=== PATIENT | female | born 1960 | race African-American/Black ===

== ENCOUNTER 2018-05-24 17:01 | Emergency (ER) | payer BC ==
[2018-05-24] MEDS ORDERED: AZITHROMYCIN 250 MG TAB ONE (18:58)
[2018-05-24] MEDS ORDERED: OSELTAMIVIR 75 MG CAP ONE (18:58)
--- NOTE | 2018-05-24 19:11 | ER ---
Nurse's Notes [facility] Name: Kary Sosa Age: 57 yrs Sex: Female : 1960 Arrival Date: 05/24/2018 Time: 17:02 Bed 19 Private MD: Diagnosis: Cough;Influenza due to identified novel influenza A virus;Sarcoidosis of lung;Pain in right lower leg;Synovial cyst of popliteal space [Warner], right knee Presentation: 05/24 17:19 Presenting complaint: Nonproductive cough, body aches, bilateral ear pain, dizziness, hb malaise, sinus congestion, SOB, sore throat, diarrhea, and subjective fever x 5 days. Transition of care: patient was not received from another setting of care. Onset of symptoms was May 24, 2018. Risk Assessment: Do you want to hurt yourself or someone else? Patient reports no desire to harm self or others. Care prior to arrival: None. 17:19 Method Of Arrival: Ambulatory hb 17:19 Acuity: PARISH 3 hb 18:22 Initial Sepsis Screen: Does the patient meet any 2 criteria? No. Patient's initial sv sepsis screen is negative. Does the patient have a suspected source of infection? No. Patient's initial sepsis screen is negative. Historical: - Allergies: 17:23 Sulfa (Sulfonamide Antibiotics); hb - Home Meds: 17:23 amlodipine oral [Active]; olmesartan oral oral [Active]; hb - PMHx: 17:23 sarcoidoisis; Hypertension; hb - PSHx: 17:23 Knee - RIGHT; Hysterectomy; Tubal ligation; hb - Immunization history:: Adult Immunizations up to date. - Social history:: Smoking status: Patient/guardian denies using tobacco. - Ebola Screening: : No symptoms or risks identified at this time. - Family history:: not pertinent. Screenin:22 Abuse screen: Denies threats or abuse. Denies injuries from another. Nutritional sv screening: No deficits noted. Tuberculosis screening: No symptoms or risk factors identified. Fall Risk None identified. Assessment: 18:22 General: Appears in no apparent distress. uncomfortable, well groomed, well developed, sv Behavior is calm, cooperative, appropriate for age. General: Reports feeling ill for 1-2 days, fatigue for 1-2 days. Pain: Complains of pain in right ear and left ear and medial aspect of right calf Pain currently is 6 out of 10 on a pain scale. Quality of pain is described as aching, Is intermittent. Neuro: Level of Consciousness is awake, alert, obeys commands, Oriented to person, place, time, situation, Moves all extremities. Full function Gait is steady, Speech is normal. Respiratory: Respiratory effort is even, unlabored, Respiratory pattern is regular, symmetrical. Derm: Skin is normal. Musculoskeletal: Range of motion: intact in all extremities. 19:05 Reassessment: Patient appears in no apparent distress at this time. No changes from sv previously documented assessment. Patient and/or family updated on plan of care and expected duration. Pain level reassessed. Patient is alert, oriented x 3, equal unlabored respirations, skin warm/dry/pink. Vital Signs: 17:21 BP 119 / 91; Pulse 90; Resp 20; Temp 99(TE); Pulse Ox 100% on R/A; Pain 6/10; hb 18:33 BP 92 / 70; Pulse 91; Resp 18; Pulse Ox 96% ; sv ED Course: 17:02 Patient arrived in ED. as 17:21 Triage completed. hb 17:23 Arm band placed on. hb 18:20 Woodrow Lawson MD is Attending Physician. renetta 18:21 Marisol Harris, RN is Primary Nurse. sv 18:22 Patient has correct armband on for positive identification. Bed in low position. Call sv light in reach. Pulse ox on. NIBP on. Door closed. Warm blanket given. Head of bed elevated. 18:44 Patient taken to ultrasound. via wheelchair. hr 19:00 Awaiting radiology results. sv 19:03 US Extremity Venous W Compression Mc In Process Unspecified. EDMS 19:09 Primary Nurse role handed off by Marisol Harris, FAINA ed1 19:09 Kalpana Patel, RN is Primary Nurse. ed1 19:13 Report given to Kalpana EISENBERG. sv 19:21 No provider procedures requiring assistance completed. Patient did not have IV access ed1 during this emergency room visit. Administered Medications: 19:12 Drug: Tamiflu 75 mg Route: PO; sv 19:21 Follow up: Response: Medication administered at discharge. ed1 19:13 Drug: Zithromax 500 mg Route: PO; sv 19:22 Follow up: Response: Medication administered at discharge. ed1 Outcome: 19:10 Discharge ordered by MD. jackson 19:21 Discharged to home ambulatory. ed1 19:21 Condition: good 19:21 Discharge instructions given to patient, Instructed on discharge instructions, follow up and referral plans. medication usage, Demonstrated understanding of instructions, follow-up care, medications, Prescriptions given X 4. 19:22 Patient left the ED. ed1 Signatures: Dispatcher [employer] EDNV Marisol Harris RN RN Woodrow Cole MD MD cha Rod, Haley hr Martinez, Amelia as Riggs, Erika, RN RN ed1 Shaina Doshi RN RN hb Corrections: (The following items were deleted from the chart) 17:22 17:19 Presenting complaint: Nonproductive cough, dizziness, malaise, sinus congestion, hb SOB, sore throat, diarrhea, and subjective fever x 5 days hb
--- NOTE | 2018-05-24 19:11 | EDPHYS ---
Physician Documentation [facility] Name: Kary Sosa Age: 57 yrs Sex: Female : 1960 Arrival Date: 05/24/2018 Time: 17:02 Bed 19 Private MD: ED Physician Woodrow Lawson HPI: 05/24 18:33 This 57 yrs old Black Female presents to ER via Ambulatory with complaints of Flu renetta Symptoms. 18:33 The patient presents with pain, that is acute. The complaints affect the medial aspect renetta of right calf. Context: resulted from an unknown cause. Onset: The symptoms/episode began/occurred 3 day(s) ago. Modifying factors: The symptoms are alleviated by nothing. The patient or guardian reports cough, flu symptoms, arthralgias, low-grade fever, myalgias. Modifying factors: The symptoms are alleviated by nothing. The patient or guardian reports airway noise. Historical: - Allergies: 17:23 Sulfa (Sulfonamide Antibiotics); hb - Home Meds: 17:23 amlodipine oral [Active]; olmesartan oral oral [Active]; hb - PMHx: 17:23 sarcoidoisis; Hypertension; hb - PSHx: 17:23 Knee - RIGHT; Hysterectomy; Tubal ligation; hb - Immunization history:: Adult Immunizations up to date. - Social history:: Smoking status: Patient/guardian denies using tobacco. - Ebola Screening: : No symptoms or risks identified at this time. - Family history:: not pertinent. ROS: 18:33 Constitutional: Negative for fever, chills, and weight loss, Eyes: Negative for injury, renetta pain, redness, and discharge, ENT: Negative for injury, pain, and discharge, Neck: Negative for injury, pain, and swelling, Cardiovascular: Negative for chest pain, palpitations, and edema, Abdomen/GI: Negative for abdominal pain, nausea, vomiting, diarrhea, and constipation, Back: Negative for injury and pain, : Negative for injury, bleeding, discharge, and swelling, MS/Extremity: Negative for injury and deformity, Skin: Negative for injury, rash, and discoloration, Neuro: Negative for headache, weakness, numbness, tingling, and seizure, Psych: Negative for depression, anxiety, suicide ideation, homicidal ideation, and hallucinations, Allergy/Immunology: Negative for hives, rash, and allergies, Endocrine: Negative for neck swelling, polydipsia, polyuria, polyphagia, and marked weight changes, Hematologic/Lymphatic: Negative for swollen nodes, abnormal bleeding, and unusual bruising. 18:33 Respiratory: Positive for cough, shortness of breath, on exertion. wheezing, expiratory. Exam: 18:33 Constitutional: This is a well developed, well nourished patient who is awake, alert, renetta and in no acute distress. Head/Face: Normocephalic, atraumatic. Eyes: Pupils equal round and reactive to light, extra-ocular motions intact. Lids and lashes normal. Conjunctiva and sclera are non-icteric and not injected. Cornea within normal limits. Periorbital areas with no swelling, redness, or edema. ENT: Nares patent. No nasal discharge, no septal abnormalities noted. Tympanic membranes are normal and external auditory canals are clear. Oropharynx with no redness, swelling, or masses, exudates, or evidence of obstruction, uvula midline. Mucous membranes moist. Neck: Trachea midline, no thyromegaly or masses palpated, and no cervical lymphadenopathy. Supple, full range of motion without nuchal rigidity, or vertebral point tenderness. No Meningismus. Chest/axilla: Normal chest wall appearance and motion. Nontender with no deformity. No lesions are appreciated. Cardiovascular: Regular rate and rhythm with a normal S1 and S2. No gallops, murmurs, or rubs. Normal PMI, no JVD. No pulse deficits. Abdomen/GI: Soft, non-tender, with normal bowel sounds. No distension or tympany. No guarding or rebound. No evidence of tenderness throughout. Female : Normal external genitalia. Skin: Warm, dry with normal turgor. Normal color with no rashes, no lesions, and no evidence of cellulitis. Neuro: Awake and alert, GCS 15, oriented to person, place, time, and situation. Cranial nerves II-XII grossly intact. Motor strength 5/5 in all extremities. Sensory grossly intact. Cerebellar exam normal. Normal gait. Psych: Awake, alert, with orientation to person, place and time. Behavior, mood, and affect are within normal limits. 18:33 Respiratory: the patient does not display signs of respiratory distress, Respirations: normal, Breath sounds: rhonchi, wheezing: expiratory that is mild. Vital Signs: 17:21 BP 119 / 91; Pulse 90; Resp 20; Temp 99(TE); Pulse Ox 100% on R/A; Pain 6/10; hb 18:33 BP 92 / 70; Pulse 91; Resp 18; Pulse Ox 96% ; sv MDM: 18:20 Patient medically screened. [facility] 18:37 Data reviewed: vital signs, nurses notes, lab test result(s), Flu: positive radiologic [facility] studies, ultrasound. 05/24 17:21 Order name: Flu; Complete Time: 18:30 hb 05/24 17:21 Order name: Strep; Complete Time: 18:30 hb 05/24 17:56 Order name: Throat Culture EDMS 05/24 18:31 Order name: US Extremity Venous W Compression Mc renetta Administered Medications: 19:12 Drug: Tamiflu 75 mg Route: PO; sv 19:21 Follow up: Response: Medication administered at discharge. ed1 19:13 Drug: Zithromax 500 mg Route: PO; sv 19:22 Follow up: Response: Medication administered at discharge. ed1 Disposition: 05/24/18 19:10 Discharged to Home. Impression: Cough, Influenza due to identified novel influenza A virus, Sarcoidosis of lung, Pain in right lower leg, Synovial cyst of popliteal space [Warner], right knee. - Condition is Stable. - Discharge Instructions: Influenza, Adult, Musculoskeletal Pain, Cool Mist Vaporizer, Influenza, Adult, [id number], Cough, Adult, [id number], Cough, Adult. - Prescriptions for Albuterol Sulfate 90 mcg/actuation - inhale 1-2 puff by INHALATION route every 4-6 hours; 1 Inhaler. Tamiflu 75 mg Oral Capsule - take 1 tablet by ORAL route every 12 hours for 5 days; 10 tablet. Guaifenesin AC 10- 100 mg/5 mL Oral Liquid - take 10 milliliters by ORAL route every 6 hours As needed; 160 milliliter. Zithromax 500 mg Oral Tablet - take 1 tablet by ORAL route once daily for 4 days; 4 tablet. - Medication Reconciliation Form, Thank You Letter, Antibiotic Education, Prescription Opioid Use, Work release form form. - Follow up: Private Physician; When: 2 - 3 days; Reason: Recheck today's complaints, Continuance of care, Re-evaluation by your physician. - Problem is new. - Symptoms have improved. Signatures: Dispatcher [employer] EDMarisol Wright, RN RN Woodrow Lawson MD MD cha Riggs, Erika RN RN ed1 Shaina Doshi RN RN Corrections: (The following items were deleted from the chart) 19:22 19:10 05/24/2018 19:10 Discharged to Home. Impression: Cough; Influenza due to ed1 identified novel influenza A virus; Sarcoidosis of lung; Pain in right lower leg; Synovial cyst of popliteal space [Warner], right knee. Condition is Stable. Discharge Instructions: Influenza, Adult, Musculoskeletal Pain, Cool Mist Vaporizer, Influenza, Adult, [id number], Cough, Adult, [id number], Cough, Adult. Prescriptions for Albuterol Sulfate 90 mcg/actuation - inhale 1-2 puff by INHALATION route every 4-6 hours; 1 Inhaler, Tamiflu 75 mg Oral Capsule - take 1 tablet by ORAL route every 12 hours for 5 days; 10 tablet, Guaifenesin AC 10-100 mg/5 mL Oral Liquid - take 10 milliliters by ORAL route every 6 hours As needed; 160 milliliter, Zithromax 500 mg Oral Tablet - take 1 tablet by ORAL route once daily for 4 days; 4 tablet. and Forms are Medication Reconciliation Form, Thank You Letter, Antibiotic Education, Prescription Opioid Use. Follow up: Private Physician; When: 2 - 3 days; Reason: Recheck today's complaints, Continuance of care, Re-evaluation by your physician. Problem is new. Symptoms have improved. renetta
--- NOTE | 2018-05-24 19:19 | RAD REPORT ---
EXAM DESCRIPTION: US - Extrem Venous W Compress Mc - 05/24/2018 7:02 pm CLINICAL HISTORY: PAIN Bilateral leg edema and swelling. COMPARISON: No comparisons TECHNIQUE: Real-time sonographic interrogation of the left and right lower extremity deep venous sys tems was performed. FINDINGS: Normal compressibility, flow augmentation, phasic flow and spontaneous flow is identified in both the left and right lower extremity deep venous systems. Small right Warner's cyst. IMPRESSION: No sonographic evidence of left or right lower extremity deep venous thrombosis.
== END 2018-05-24 19:22 | disposition home or self-care (01) ==
LOC: ER 17:01
DX: J10.1 Influenza due to other identified influenza virus with other respiratory manifestations (principal); D86.0 Sarcoidosis of lung; M79.661 Pain in right lower leg; M71.21 Synovial cyst of popliteal space [Baker], right knee; I10 Essential (primary) hypertension; Z88.2 Allergy status to sulfonamides
CPT/HCPCS: 87070; 87081; 87804; 93970; 99284

== ENCOUNTER 2021-04-28 19:18 | Inpatient (IN) | payer BC ==
--- OUTSIDE RECORDS SUMMARY | 2021-04-28 19:22 | XMS REPORT | Continuity of Care Document ---
:1960 Author Organization [facility] t Address [address] [place]. [address] [place] [id number] Care Team Providers Name Role Phone [phone] Primary Care Physician Unavailable SYSTEM, PROVIDER NOT IN Attending Clinician Unavailable JAMES Attending Clinician Unavailable James LAM Attending Clinician Marlon CORTES Attending Clinician Unavailable Marlon Cortes MD Attending Clinician Josue COLLAZO Attending Clinician JOSUE Attending Clinician Unavailable Barbara LAM Attending Clinician Harinder EISENBERG, M Attending Clinician Unavailable Yelena Geiger MD Attending Clinician Marciano Garcia MD Attending Clinician Payers Payer Name Policy Type Policy Number Effective Date Expiration Date S hua [place] POS [id number] 2017 00:00:00 Problems Condition Condition Condition Status Onset Resolution Last Treating Co mments Source Name Details Category Date Date Treatment Clinician Date Lesion of Lesion of Disease Active scalp scalp 3-17 Anderso 00:00: n 00 Allergies, Adverse Reactions, Alerts This patient has no known allergies or adverse reactions. Family History Family Member Diagnosis Comments Start Date Stop Date Source Natural brother Skin cancer Thierno son Social History Social Habit Start Date Stop Date Quantity Comments Source History [facility] MD [facility] Alcohol Frequency History ANTONYHI MD [facility] Alcohol Std Drinks History ANTONYHI MD [facility] Alcohol Binge Alcohol intake 2021-01-25 2021-01-25 Ex-drinker MD Don townsend 00:00:00 00:00:00 (finding) Cigarettes smoked 2020-06-05 2020-06-05 MD Frederick palacios current (pack per 00:00:00 00:00:00 day) - Reported Cigarette 2020-06-05 2020-06-05 MD Lawson pack-years 00:00:00 00:00:00 Tobacco use and 2020-06-05 2020-06-05 Smokeless tobacco MD Lawson exposure 00:00:00 00:00:00 non-user History SDOH 2020-06-05 2020-06-05 I quit 08/19/1990 MD Karyn almaraz Alcohol Comment 00:00:00 00:00:00 Tobacco Comment 2020-06-05 2020-06-05 I quit 23 years MD Lawson 00:00:00 00:00:00 ago History of tobacco 1974 1997-12-18 Current smoker MD Lawson use 00:00:00 00:00:00 Sex [birth year] At [birth year] F MD Sellers on 00:00:00 00:00:00 Smoking Status Start Date Stop Date Source Ex-smoker 2020-06-05 00:00:00 2020-06-05 00:00:00 MD Pa son Medications Ordered Filled Start Stop Current Ordering Indication Dosage Frequency Signature Comments Components Source Medication Medication Date Date Medication? Clinician (SIG) Name Name dexlansopra 2020-03 Yes 60mg Take 60 mg MD membreno 03-27 by mouth Anderso (DEXILANT) 10:48: daily. 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 Xarelto 20 Yes 1{tbl} Take 1 MD mg tablet 1-04 tablet by Thierno so 00:00: mouth n 00 daily. sotalol Yes 40mg Take 40 mg MD (BETAPACE) 8-12 by mouth Thierno so 80 mg 00:00: twice n tablet 00 daily. budesonide- Yes 2{puff} Inhale 2 MD formoterol 9-12 puffs by Thierno so (Symbicort) 00:00: mouth n 80-4.5 00 daily as mcg/actuati needed. on inhaler Immunizations Ordered Immunization Filled Immunization Date Status Commen ts Source Name Name Moderna SARS-CoV-2 2020-07-03 Completed MD And erson Vaccination 00:00:00 Moderna SARS-CoV-2 2020-05-31 Completed MD And erson Vaccination 00:00:00 Vital Signs Vital Name Observation Time Observation Value Comments Source HEIGHT 2020-06-05 10:28:00 162.3 cm WEIGHT 2020-06-05 10:28:00 103.8 kg HEIGHT 2020-06-05 10:28:00 162.3 cm WEIGHT 2020-06-05 10:28:00 103.8 kg Systolic blood pressure 2021-01-25 16:39:31 115 mm[Hg] MD Lawson Diastolic blood pressure 2021-01-25 16:39:31 80 mm[Hg] MD Lawson Heart rate 2021-01-25 16:39:31 76 /min MD Thierno joseph Body temperature 2021-01-25 16:39:31 36.78 Vita MD Jaki lord Oxygen saturation in 2021-01-25 16:39:31 98 /min MD Lawson Arterial blood by Pulse oximetry Body height 2020-06-05 15:28:00 162.3 cm MD Pa son Body weight 2020-06-05 15:28:00 103.8 kg MD Pa son BMI 2020-06-05 15:28:00 39.43 kg/m2 MD Pa son Respiratory rate 2020-06-05 15:16:21 20 /min MD Jaki lord Procedures Procedure Date / Time Performed Performing Clinician Sour e COVID-19 (SARS-COV-2) 2020-06-03 16:16:00 Fabiola Cortes MD And dena PCR-ASYMPTOMATIC PATHOLOGY OUTSIDE 2020-05-09 00:00:00 Musa Garcia MD INTERPRETATION Plan of Care Planned Activity Planned Date Details Comments Source Future Scheduled Test 2020-12-03 00:00:00 COVID-19 Vaccination (3 MD Lawson - Booster for Moderna series) [code = COVID-19 Vaccination (3 - Booster for Moderna series)] Encounters Start End Encounter Admission Attending Care Care Encounter Source Date/Time Date/Time Type Type Clinicians Facility Department ID 2020-05-22 Outpatient SYSTEM, [facility]BY [id number] 10:55:03 PROVIDER Marlo townsend 2021-01-25 2021-01-25 Outpatient JIN RUBI MDA [facility] [id number] 10:32:29 11:27:03 JANEL Marlo o n 2020-10-01 2020-10-01 Outpatient FABIOLA CARBAJAL MDA MDA [id number] 11:07:28 11:49:45 Marlo o n 2020-07-02 2020-07-02 Outpatient JIN WINTERS MDA MDA [id number] 13:43:20 15:03:17 NEYDA Marlo o n 2020-06-05 2020-06-05 Outpatient FABIOLA CARBAJAL MDA MDA [id number] 10:06:15 12:02:23 Marlo o n 2020-06-05 2020-06-05 Outpatient JIN SOUZA MDA [id number] 10:00:16 10:00:22 Marlo o n 2020-06-03 2020-06-03 Outpatient FABIOLA CARBAJAL MDA MDA [id number] 11:08:51 11:21:38 Marlo o n Results Test Description Test Time Test Comments Results Result Comments Source COVID-19 (SARS-CoV-2) PCR-Asymptomatic 2020-06-03 22:29:0 1 Test Item Value Reference Range Interpretation Comme nts COVID19 (SARS CoV-2) Not Detected Not Detected This te st is a qualitative Result (test code = reverse- transcriptase polymerase 08952-6) chain reaction (RT-PCR) developed for the [employer] system and intended fo r the detection of SARS CoV-2 RNA in human nasopharyngeal specimens from patients who me et COVID-19 clinical and/or epidemiological criteria. This assay has been approved by the FDA for use only under Emergency Use Authorization (EUA) in [facility] that have been CLIA-certi fied to perform moderate-comple xity and high-complexity tests. The performance renetta racteristics of this assay were verified by the Microbiology La boratory at [facility], CLIA Accreditation # : [id number] and CAP Accreditati on #: [id number]. Results must be interpreted within the context of all relevant clinical and la boratory findings and should not form the sole basis for a diagnosis or treatment decision. "Pres umptive Positive" results are due to partial amplification o f SARS-CoV-2 targets and ind icates low amounts of virus presen t in the specimen at or near the limit of detection. Regardless, ind ividuals with "Presumptive Po sitive" results should be manag ed per institutional g uidelines as individuals pos itive for SARS-CoV-2 viru s, including use of appropriate inf ection control protocols. Inte rnal controls are included to ass ess for possible amplification i nhibitors. If inhibition is d etected, testing is repeated and if inhibition is confirmed the s pecimen is resulted as "Invalid". W hen an "Invalid" result occur, i t is recommended to wait 3 days bef ore submitting a new specimen fo r testing if clinically frank cated. COVID19 SARS Source TAX EXAMINER Swab (test code = 09395) COVID19 SARS Indication New Patient (test code = 64205) MD [facility] Outside [id number] 21:46:00 Test Item Value Reference Range Interpretation Comments Materials Received (test w7cswXVhYVCjrSMgLvAz code = 9973) [id number] ZzEwMzNcZnRuYmpcdWMx MDFjAtMwy1ekq474mPLl x3tpFBQvKfN4dFBgTBTl hMDjH056QDMxTHezh3ek k4VgCKTmtXCpc3O2KGUO vmfnaEu9tJxjW82vg3A2 ZoecR5ybVGEdSLSwX3Ym LL4sDTPrQzu1YXS0LGP0 CRLwQJWcD6AaXZ2sCCTh pQJtAXa2f6vlcZwuTSOv OPV2d0bxUXtdznSwIW7s fm9qbAj9s3xapeGdTJEb XHZliEKSYRAmE0QgrYyn Qz2zqAa9hUshZwsiETF1 Rwd6NS0rbz14ftq9bZqb IJCfolroBiB4USsmTZAy ftoeKYe4FHgmTNKqhYem MFxtYXJncjcyMFxtYXJn sGB7PJNjuDWwS7RwWSCx ZPlzZFPelsq9PlFvAg7k gYWwwUraKWhzk2nox4tp vTDrXzf1LNBcAkVdJyke QOiyi8Axe4gwKWYejt1i VCJ9zMJrjHtdw1J5oOXs FKGkmZPxdmTqPGHkmc93 lNJbyZJpcPBxsv7jlcOi nMNrnSDsJMT7zDWeamAt FFYyqJLaISBxZO4qkMNj ECGhoO9bgucrBZUvEsOc dtrmDLPjgKliqrBbVl4e pLpjSAF0BTooR4rjnX9m DpK7JMnlH2bdcK7cNNa0 FVpclNZ9GYNneD8mMG7t fcfhm7gtXsGxLS3pbyli m2voQrNgTL4utfu4r7no ZLM4PBrfEDCgTqW5qiA7 NDBcaGVhZGVyeTcyMFxm v400OLO7MjLjRAVwj7Ar M1VliToyQ10hfDkbE03l UYFyuQvfxR8gjNjydV3z MxRvXrNsPVd6tb76RGo6 mmrwmUisCUu3rcPqAWJj QKG5EFOyxWCkLAVzU8v6 bvWpFNFvVVE6KGTczDEy GWJrF0y6lwJpIYF8HCy0 cnBhZGRmdDNcdHJwYWRk YjBcdHJwYWRkZmIzXHRy vDZszBKlzOBqiA1lsMbm WSAryNZijV8lURF6IXSk cmgzMjBcdHJoZHJcbHRy vs57YMZztaIzyRLaeShv eZFsXCA3SVGaFMAhPIIt UAB7SMEwMjYpydCgSKjn bGJyZHJiXGJyZHJzXGJy KQD0QWAzZaEojtGwOBll bGJyZHJsXGJyZHJzXGJy QCI3IERpQkIvkzPuZItu bGJyZHJyXGJyZHJzXGJy EIC4FADwLjIrurBgBChi bHBhZHQxMFxjbHBhZGZ0 V1aixRUeVPTlWDiwsIBs WQHgB0qgdYYmRXulBFEk cGFkZmwzXGNscGFkYjBc V1rxHAJvRbVbE0HchKd6 MDAwXGNsdmVydGFsdFxj fDZqPYJ5BFVnSSEnXOTh LTB6QUDqTzLktdVvEVxy bGJyZHJiXGJyZHJzXGJy TEG4XZCbBpJmhmThAAbs bGJyZHJsXGJyZHJzXGJy FKY7GRLxByRiytLhKGjl bGJyZHJyXGJyZHJzXGJy EDX7VVQbPvJtxdKaFGfi bHBhZHQxMFxjbHBhZGZ0 E7wuyKPrYSViYOmxyNAe ZUYrB8fksKRmVAttSACq cGFkZmwzXGNscGFkYjBc R5ycFZTiJvYlX7DdcCw6 NjAwXGNsdmVydGFsdFxj xUXeOQH9RHFyQGXiDUQo IJT1DCXfVaKsvkTmJDjw bGJyZHJiXGJyZHJzXGJy UXE3VEOpZeBavmPgWZeh bGJyZHJsXGJyZHJzXGJy BPF1FGSoGoBmgnDuERnr bGJyZHJyXGJyZHJzXGJy KVE1SBBrIjEwnvRsJCnu bHBhZHQxMFxjbHBhZGZ0 V4wzaWPuNTSyGDqaaIVk LWQsO9xbfGXlXLnoCZMd cGFkZmwzXGNscGFkYjBc C1giRBLnPrMdY3PxjHu9 QdCiWRBnaeOwkH77Ewkx r9DxLFUvNJW6YDsdYSzf bFxwbGFpblxmMVxmczIw QUzbgxehLJMeAUvdQ0lm PqZaEPQzbXbwANovw1Yn XGYxXGNmMlxmczIwXGIg SXJdAUEwfG1hBpfjK2Jw qT6dWFxuYurmP5paOMJe u6QmzB7lAKjtwTQpmsbx MVxmczIwXGxhbmcxMDMz DQbnW7kkPzTbDWCuwXpp NKyun5QpCWPoKALiBufo qwWnKYk0kfFwZPSitTve yLNnCAxxseXxgXoak4Wt klUrxAfgMWAgWDn8arEj vrtgkKn8hZIjcNyrKQKg eQwzfZ9kIoQcLrJpFOps bGFpblxmMVxmczIwXGxh axqjQPKeQWgwH0cnMzVz QLTkxAzsLVjjk5YjNWUn MIFlBpzefzFhRGEqO93v bGVjdGVkXHBsYWluXGYx XGZzMjBcbGFuZzEwMzNc aGljaFxmMVxkYmNoXGYx XYofO6kbDqJjE5VnKBWk MfAcwCQiW0myJ2OfpIvf YXJkXGludGJsXHNzcGFy UBN0tAAstpAhhOCygOYl MWTtRHpxCZA6zKNtrnge xGTpxbxoKCebxbW8FBJg YWluXGYxXGZzMjBcbGFu ZzEwMzNcaGljaFxmMVxk DwDoERLgDJhiY9dmAaVz V8NzMCDaGaGzIxYHQTWv aXZlZFxwbGFpblxmMVxm czIwXGxhbmcxMDMzXGhp A0tcIbLvBDQalKlfFGdh b8YsTWWyOWCtAflclcDm JFi5uaSjDRWycEtpvJ99 Mfseos45YGOsg3yuGQOa P7IyeGSgMUXzyIPhJOdj MDhcdHJwYWRkZmwzXHRy cGFkZHIxMDhcdHJwYWRk ZnIzXHRycGFkZHQwXHRy yOHpLVD3E4y6xcFmQWFm TDe3ntRrYCAlVyExtDFd YAY7PUh9EkyijiW5wXEb I2x1HgwzdxFnULrevGQj oy96RMGbhaJdmLFheIjs eXKbNMM4RXBeRMRbECSd OYE7QZXhRrMqixMjHHag bGJyZHJiXGJyZHJzXGJy DXV9JYSkDcZqukGxJZln bGJyZHJsXGJyZHJzXGJy YGY1GYNcHnQkwwYnSYfg bGJyZHJyXGJyZHJzXGJy ATO6JJGoMxTejiWpZEgz bHBhZHQxMFxjbHBhZGZ0 P2bfyWUsPIGeFMcdbECg EJLvK5vrvZTxVBdrOAMs cGFkZmwzXGNscGFkYjBc N8tsHAWnMkSrW4KgnOq0 MDAwXGNsdmVydGFsdFxj aRUxHDG1UXShXIWrYGFs GGA2NIWfAzOkcsKuGKzi bGJyZHJiXGJyZHJzXGJy KYG7ZMZzIxDnsrFrRMzb bGJyZHJsXGJyZHJzXGJy TUP8NFDxWtFlrsAbFGhn bGJyZHJyXGJyZHJzXGJy JYC9QCVwOwJdtdKdZUbg bHBhZHQxMFxjbHBhZGZ0 E6bleXAlKBKpWVphfQJy OOLiA4gclITqDZtyEWBm cGFkZmwzXGNscGFkYjBc S5eoBQLnImQhM8DeqIz4 NjAwXGNsdmVydGFsdFxj nZSeEPB1DNQuCWMnWRLm SEX1AJNiJoXrecHmMPpn bGJyZHJiXGJyZHJzXGJy LFN6OJTdUlPlzqLhQZji bGJyZHJsXGJyZHJzXGJy TWM3CSIsYlQxavBeMOju bGJyZHJyXGJyZHJzXGJy EPB3AYNfVtZilfAsRIam bHBhZHQxMFxjbHBhZGZ0 E1aokKFmCXVkRGfboTFx IEOeJ0kxyLWsPMmxFUUr cGFkZmwzXGNscGFkYjBc E5aeKWQfJlWzZ7SltCi9 MaVsCNOlksRyiX84Ocin g8TqOEHsBUR7HVeoKFux bFxwbGFpblxmMFxmczI0 XHBsYWluXGYxXGZzMjBc bGFuZzEwMzNcaGljaFxm UZifDfOpNWQxEUdtV0rc FxDrO1CbJDBhFwBzYI4d InOVUtWsGKR0VZWsGQLu C1VnWEUtMjvHP7kCJlCw RNMWP9mnrIYbxfrpEYpo czIwXGxhbmcxMDMzXGhp C4wlIzUqGFBbeVjdUFyv s6EhFYPpHXZnWjczqhTw QFv0vgAuKGPkiYhpgXLr YOdmqaPolLmcj4EftjDz dXgwXHMwXHFsXHBsYWlu LFKdMZBkQxXveOvmlK4h MyLqCtCtBWeyXW8nZEJy E4xouRWsQFTmVPRlU6ae UlSffO6kwGopVYptMyAq ZnMyMCAzLzMvMjAyMVxw bGFpblxmMVxmczIwXGxh bqmcDINfIGekD8bxVkKt LLCxzEjkGKkvj2GxKBZt FUGhQtknuzMgQPj2erMd XGNlbGxccGFyZFxpbnRi wVynm5KphsBbyLttLKVu XHFsXHBsYWluXGYwXGZz XrSvzFlcyF7vXzZtZrUj DHnqRM0wXIEqO2qzqFLi NCLkLBPkW9ygYcIguT6s aFxmMVxjZjJcZnMyMCAz XkW6OrWgCzSixNxnlW6d FrUySkZqTAqdUA3zYVQl O8jcsLCdHMYvGZFbF4jx JjByqT9tnOxhMEqkAoLt ZnMyMFxsdHJjaFxjZWxs JUgxzAMpCWZni4bjDMEc JWYajLBvMKC7vLGzwuWo qFdlkNjtuB8cHvSpOfSz NFxwbGFpblxmMVxmczIw FYnxyxqoJGTrCGkjF8on UhJcQIPkyRhgPJpaw7Um XGYxXGZzMjBccGFyfQ== Diagnosis (test code = o8erkBAqVGRjhDP5KnKp 34) RDKyv3ykd3MeyFWntIPf AOghcWXcmbCbio25nKI1 yD14SM9iGSJwBaV2ULVl qsV8Iry7CVMzYKVgqQSg U203d4mik3fzczVopAV7 fVxwYXJkXHBsYWluXGZz FuFnH0D1c7euVLFuKJWc cmlhbCAoUkNCMjEtMDA3 QDXlRKIuI0HpFDWiNudX R5kQWfEtKLSAEbnxB78l wAZtyVStRI8eLIPhQs0g MDIxKTpccGFyXHBhclxs aPyyCCorwJ42McJyY1mc lpvdjxypdGKhx4WdlHNl dGFsIHNjYWxwLCBzaGF2 WBLqKNsJYyU3ORSvNGAe OlxwYXJcbGkyMTYwXGZp UHryLGlbxI5tIXOzAKZs aA4vz3o4bDOlS8IefWjs g3kfLBHnTTBmfJZaJD6j oDWonZvgbNwfC2b3eHLs nY7yrGDfrTY7wB7cWNkp iYflp0Qzvqufy3QcdhHs bmQgcGlnbWVudGFyeSBh xNUozcW7qS9oSUVtllRh CC85GDP5FMEjKIAnvIdn l4ZqLIBohcAfFOxuly7y oZQqNWRxPJJpx48eSV24 LlxwYXJ9 Comment (test code = k3vlqEGwUZMpvID3FbVy 9806) BNLox3dfb5ZykCBnaEZp TCremDYkjdGgmy10kRJ8 xK06LZ3qONGaRaB1AGFt qaO3Bir6OGMgIQJbcLTv G050i7rnx1sgasCcpGF9 fVxwYXJkXHBsYWluXGZz ZlLcW0PrdLlecmSok5jn iwAsa1akYWBwTCKsFHgr bCcmqHwvVUQbWSNiuN7s jNRrVJUwiuRiJKBmxX0z hTIoYQJnYE65eZ1gpYHq JPHvaTAlyp5pvNPjzE5b B3elq7xbIAKqKTNzRW6u ZLika1GreZ2erNo2dmI2 VOWxGzOoeD4utR7lrIVj cyBpbnZvbHZpbmcgdGhl FTWbpQMnul6rugWayoEi Ch0rkVpfiNtsxaXbnAp6 aGVsaXVtIHdpdGggYXNz s7TaGJXqVMBzoDCqFHHz cO24hEAmO4BkkMLdSAWa MLUkJSlzFEYta21lbKC9 GFJesCodsJZthLMxLR4v F6AbaMncT5GePzIifWKe SYSkhhBCRxM2cFIwPEGv cmUgbXVsdGlwbGUgbGVz sS4kvozjsOpuQOdsb6Ba dZ7qcQRuREkvWxEzFZ34 pDNfMOIvEDgnt6NqsqVn aqEsrSDvgiUiEHc7dUIn aLzzz9FyHxOuqJKzKR9s nYYwchBsC7Zes02oSBIn Qa0amJsaHJWedQUrdGwi RWzfJ5akuuVccYUcfFOx f8IfA81bpbQspHk1DPX8 jGQwzHXubDKuM2Bnjgen PWsvVHDtlP5zG4BreBgp nW0haAKdrDQbKKOiJHNa HLu8iV2mIEcgJNSnbUFv YWLjq8LxvHEbAQigTnGd l34sIH9qT8Xdz9QicXC3 nyRyyRFfrTQpRVHga6H2 UB1gpSFrG2CamKSrHRSb mV0vyCOiGSKpfO1fW5Zo MSMjrhYsdCU5vU1dQWwh YHTcL80hlLEmQMFmFdLg IFxwYXJccGFyIERyLiBI MCFmNWvna2ShQJ2crXen rPYiBB0hQHHpSWUnYa93 WFOtuI0niU5bytGjmcBm CiEpNfJtOAU2BTD1Mdzk hD8bHOZsbprbGNDrJGdc cyBjYXNlIHdhcyBzdHVk aWVkIGFuZCBkaXNjdXNz VNDzJHYgoBiiQEFwfr3b pA8pRBZto4fqT3ogSbAo pSm4jMIev75kNKSsnySu LiAgXHBhcn0= Transport Pilot(s) (test code z3hzyNLpIVMzmGD0IbCn = 9863) QPAqh6cbi9VioPDmjQTn TJpsrHHrihClth74uBM8 kS84GO6kQKAjFyH8AXQz wjP7Zmu4MTIgRXVjxJQy D631m5deo3zrrvVglCR1 fVxwYXJkXHBsYWluXGZz DeNfO0AESKDQRuwxCVLN XHBhcn0= Disclaimer (test code = h6ublLSrPLPdyURoAuPh 9844) GXUcGMUvp7ndFTNkzTOv ZzEwMzNcZnRuYmpcdWMx GGJbGcMdv9khc592tDYf l3ajQLJeTpM6xGBhQKAw hOYaY468KDXqOLdhi8xx p7AhLXErvQAxe7E2KLQC guezaVb0hDftN43ai8Y4 IgwaR2sfATEeJHNlK7Zk UO3nCJBgYrn7BJX0OUQ5 GUWaHKMrG8PeRO7tBTJr mGNdSXu9t2cpqZwkWYZx TAH9p5ppGNozqyFgRG2h nv7rzLb6n2iknyOiSELd WRXjhHPAYXEbZ5XkzMpz Rp1fgXf8kOlyQoobUGQ2 Lbn3AJ0fmc47jok3nMnk GMQwusccSxP7XApmVGTs pdcrYPg8FLwlRMUxoYT7 ARWvqITeL2SqTUVpRG3i tiv1SAN2DYskKUIbBfI5 NDBcaGVhZGVyeTcyMFxm e968LCL6JoAgUT8gJ2Vu t6W2nO6voRGgHMCvoTIo LuEcHPCzwl8mvRClRGdk x2PsBUB3ctZ9iHByhFBs DDBsET53Yrwhz3FnGkol OLV9HVWongPsu6Hnm2my OkBbaxLcK7gdF6NkNMOf KKEzXOSyHfIcnqZcm1Bs n7QwwRTfgNo8y7jcZTBv EJLtmLplk7iuUXH0HVLq Y7N6qXPdp1zpOWkkDSCp kHX1ueC3LHEylZPmP9Sl iS6bFIAsDX0ryrs1g8sg VKX7CJheBTKaNpZ3ihC2 NDBcaGVhZGVyeTcyMFxm v965PYO7EjKgNJUdn3Tr H7WcrKgfV45vyBewU31r THRqjEoeyB6njYqszH2f ZjBcZnMyNFxxbFxwbGFp wyfhSLidrxP8QIzzhggz TDOcFIiqO7qyFxYnSRFo kItjJQtnm6RiZTNtNZSl EaeeqwT6HOLNm42gAEYo j4NmRTDjzB7hhMTsVLzb wyQdhWA4IXwtctLzJwPy vvXzNIKziS2pSEIgJQ8r AWQztbOeif9khcFpERRf KBVjC3ClikdzxMptwdEv QDKben7ndcEaJSH8IXBB ZB5FXJIlGIBif56eXXGw dLnwkP0akGEuekRuWQRn i6TrnF8vmLNFQOQpR7nk MA5sQBurk8IdaVLebNKo eDM3DLNsy8BaZeSynjEk iHSkhFQbB5FehGltW8ug WYAxUZYzomIgzUDec6Et PSLnpFS2dOWyED9KPySX x24lGQEvIDXBclIqAZGi zVepsQZ6ilT0fN0yTcWL ZiBhcHBsaWNhYmxlLCBj h270uo2efmM0AUXuAJRl vwadb3KmMRTbVRStaM72 RRQdXVDedp9phvzzqKPn rbEeG5Pqftf0yV4mYJNh YWluXGYxXGZzMjJcbGFu ZzEwMzNcaGljaFxmMVxk XwYnVDYeJPcnU7iwDbDj ZnMyMlxwYXJ9 [facility]
--- OUTSIDE RECORDS SUMMARY | 2021-04-28 19:22 | XMS REPORT | Clinical Summary ---
:1960 Author Organization [facility] MD [facility] Center Address [address] [place] [address] Care Team Providers Name Role Phone Malcolm Schulte Unavailable Marlon Do MD Primary Care Provider Marciano Garcia MD Unavailable Allergies Active Allergy Reactions Severity Noted Date Comments Sulfur Hives, Itching, Rash Low 07/13/1986 Medications Medication Sig Dispensed Refills Start End Date Status Date amLODIPine (NORVASC) Take 1 tablet 0 Active 10 mg tablet by mouth 1 daily. budesonide-formotero Inhale 2 puffs 0 Active l (Symbicort) 80-4.5 by mouth daily 7 mcg/actuation as needed. inhaler Xarelto 20 mg tablet Take 1 tablet 0 Active by mouth 1 daily. sotalol (BETAPACE) Take 40 mg by 0 Active 80 mg tablet mouth twice 0 daily. dexlansoprazole Take 60 mg by 0 Active (DEXILANT) 60 mg mouth daily. capsule fluocinonide (LIDEX) Apply twice a 60 g 1 Active 0.05 % day as needed 1 gelIndications: for sores on Lichen planus, not the mouth otherwise specified fluocinonide (LIDEX) Apply twice a 30 g 2 Active 0.05% day for bumps 1 ointmentIndications: of lichen Lichen planus, not planus on the otherwise specified skin or scalp until they flatten and/or stop itching fluocinonide (LIDEX) Apply twice a 30 g 2 07/04 Discontinued 0.05% day for bumps 1 21 (Reord er) ointmentIndications: of lichen Lichen planus, not planus on the otherwise specified skin or scalp until they flatten and/or stop itching fluocinonide (LIDEX) Apply twice a 60 g 1 07/04 Discontinued 0.05 % day as needed 1 21 (Reord er) gelIndications: for sores on Lichen planus, not the mouth otherwise specified fluocinonide (LIDEX) Apply twice a 60 g 1 01/25 Discontinued 0.05 % day as needed 1 21 (Reord er) gelIndications: for sores on Lichen planus, not the mouth otherwise specified fluocinonide (LIDEX) Apply twice a 30 g 2 01/25 Discontinued 0.05% day for bumps 1 21 (Reord er) ointmentIndications: of lichen Lichen planus, not planus on the otherwise specified skin or scalp until they flatten and/or stop itching hydroquinone 4 % Apply 45 g 3 03/26/19 Exp ired creamIndications: topically to 1 22 Chloasma affected area(s) twice daily for 60 days. Active Problems Problem Noted Date Lesion of scalp 05/23/2020 Encounters Date Type Specialty Care Team Description 01/25/2021 Office Visit Dermatology James Lichen planus, not otherwise specified (Primary Dx); MD Lenore Chloasma 01/25/2021 Travel 10/01/2020 Office Visit Dermatology Fabiola Do, Lichen planus , not otherwise specified Lenore Ramirez MD 10/01/2020 Travel 07/04/2020 Orders Only Dermatology James, Lichen planus, not MD Lenore otherwise speci fied 07/02/2020 Consult Dermatology Yue Salas, Lichen planus, not otherwise specified (Primary Dx); PA Erosive oral lichen planus; James, Lesion of scalp ; MD Lenore Seborrheic tammy tosis; Dermatofibroma 07/02/2020 Travel 06/15/2020 Orders Only Covid [place], SARS-CoV-2 vacc ination [place], MD 06/05/2020 Office Visit Surgical Oncology Fabiola Do, Lesion o f scalp (Primary Dx) 06/05/2020 [facility] Patient Access Services 06/05/2020 Orders Only Surgical Oncology Yue Salas, Lesion of scalp PA (Primary Dx) 06/05/2020 Travel 06/03/2020 Clinical Support Fabiola Chris, Encounter for MD observation for other Keiko Pizano suspected ex posure to FAINA Mccormick biological agen t ruled out (Primary Dx ) 06/03/2020 Travel 05/30/2020 Orders Only Surgical Oncology Yue Salas, 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 (Primary Dx) 05/25/2020 Lab Requisition Vaughn Geiger MD Desai, Alpesh D, MD 05/21/2020 Travel after 04/28/2020 Immunizations Name Administration Dates Next Due Moderna SARS-CoV-2 Vaccination 07/03/2020, 05/31/2020 Surgical History Surgery Date Site/Laterality Comments COLONOSCOPY 03/09/2020 - 03/08/2021 HYSTERECTOMY 03/09/1991 - 03/08/1992 uterus KNEE SURGERY Right "cleaned up the knee" Medical History Medical History Date Comments Hypertension 2001 Irregular heart beat 2019 Atrial fib Pulmonary embolism 2011 Gastric reflux 2006 Uterine leiomyoma 1992 Arthritis 2007 Alcohol abuse 1987 Herpes zoster 2020 Sarcoidosis Family History Medical History Relation Name Comments Skin cancer Brother Gumaro Sosa Relation Name Status Comments Brother Gumaro Sosa Social History Tobacco Use Types Packs/Day Years Used Date Former Smoker Cigarettes 0.25 20 1974 - 1 Smokeless Tobacco: Never Used Comments: I quit 23 years ago Alcohol Use Standard Drinks/Week Comments Not Currently 0 (1 standard drink = 0.6 oz pure alcoho l) I quit 08/19/1990 Alcohol Habits Answer Date Recorded How often do you have a drink containing alcohol? Not asked How many drinks containing alcohol do you have on a Not aske d typical day when you are drinking? How often do you have six or more drinks on one Not asked occasion? Comment: I quit 08/19/1990 06/05/2020 Sex Assigned at Date Recorded Female 05/28/2020 8:57 PM CDT Job Start Date Occupation Industry Not on file Not on file Not on file Obstetrics History Last Filed Vital Signs Vital Sign Reading Time Taken Comments Blood Pressure 115/80 01/25/2021 10:39 AM [employer] Pulse 76 01/25/2021 10:39 AM [employer] Temperature 36.8 C (98.2 F) 01/25/2021 10:39 AM [employer] Respiratory Rate 20 06/05/2020 10:16 AM CDT Oxygen Saturation 98% 01/25/2021 10:39 AM [employer] Inhaled Oxygen Concentration - - Weight 103.8 kg (228 lb 13.4 oz) 06/05/2020 10:28 AM CDT Height 162.3 cm (5' 3.88") 06/05/2020 10:28 AM CDT Body Mass Index 39.43 06/05/2020 10:28 AM CDT Plan of Treatment Health Maintenance Due Date Last Done Comments COVID-19 Vaccination (3 - Booster for 12/03/2020 07/03/2020 , 05/31/2020 Moderna series) Procedures Procedure Name Priority Date/Time Associated Comments Diagnosis COVID-19 (SARS-COV-2) Routine 06/03/2020 11:16 Encounter for R esults for this PCR-ASYMPTOMATIC [facility] AM CDT observation for skye lipscomb are in other suspected the results exposure to section. biological agent ruled out PATHOLOGY OUTSIDE Routine 05/09/2020 Results fo r this INTERPRETATION procedure are in the results section. after 04/28/2020 Results COVID-19 (SARS-CoV-2) PCR-Asymptomatic [facility] (06/03/2020 11:16 AM CDT) COVID19 (SARS Not Detected Not Detected [facility] CoV-2) Result Comment: [facility] This test is a qualitative r everse-transcriptase polymerase chain reaction (RT- PCR) developed for the [employer] system and intended for the detection of SARS CoV-2 RNA in human nasopharyngeal specimens from patients who meet COVID-19 clinical and/or epidemiological crite virgil. This assay has been approved by the FDA for use only under Emergency Use Authorization (EUA) in laboratories that have been CLIA-certified to perform moderate-complexity and high-complexity tests. The performance characteristics of this assa y were verified by the Microbiology Laboratory at [facility], CLIA Accreditation #: [id number] and CAP Accreditation #: [id number]. Results must be interpreted within the context of all relevant clinical and laboratory findings and shou ld not form the sole basis for a diagnosis or treatment decision. "Presumptive Positive" resul ts are due to partial amplification of SARS-CoV-2 targets and indicates low amounts of virus present in the specimen at or near the limit of detection. Regardless, individuals with "Presumptive Positive" results should be managed per institutional gu idelines as individuals positive for SARS-CoV-2 virus, including use of appropriate infection control protocols. Internal controls are includ ed to assess for possible amplification inhibitors. If inhibition is detected, testing is repeated and if inhibition is confirmed the specimen is resulted as "Invalid". When an "Invalid" result occur, it is recommended to wait 3 days before submitting a new specimen for kashif ting if clinically indicated. COVID19 SARS GUEST SERVICES ASSOCIATE Swab [facility]ER CENTER COVID19 SARS New Patient [facility] Indication CANCER CENTER Specimen Nasopharyngeal Swab Performing Organization Address City/State/ZIP Code Phon e Number [facility] CANCER Unless otherwise noted, [place], [place] [id number] [place] [address] all lab tests performed by: Division of Pathology and Laboratory Medicine [address] [place] [address] Pathology Outside Interpretation (05/09/2020) Pathologist Sig nature Materials Received Accession#, Stained, Block, Unstained Collect ed Received [facility] A. [id number], 1 SS, 0 BLOCKS. 0 USS 05/09/2020 05/26/19 21 Diagnosis Outside material ([id number], 1 SS, 0 BLOCKS. 0 USS, collected on 05/09/2020): [facility] Electronically zaki d by Douglas lincoln MD Skin, right occipital scalp, shave (1xH&E: A1-1): on 05/28/2020 at 4:46 Skin with acanthosis and lic henoid lymphocytic inflammation with spongiosis and pigmentary alteration, present at deep tissue PM edges. See comment. Comment Sections show skin shave wit h hyperkeratosis, parakeratosis, acanthosis, epidermal spongiosis and band-like infiltrate of lymphocytes involving the epidermis and follicular epithelium with associated dy [facility] skeratotic cells. There is associated pigmented macrop hages. If there are multiple lesion s, the histologic differential diagnosis includes a hyperplastic lichenoid reaction (e.g. hyperplastic lichen planus or connective tissue process). If clinically indicated an additional deeper biopsy ma y become necessary to exclude a squamous cell carcinoma. Clinical correlation is recommended. Dr. Do was notified of the above findings on at 4:39 pm. This case was studied and di scussed at the dermatopathology faculty conference. Masonry Contractor(s) CAT, PN, PPA [facility] Disclaimer "Some tests reported [facility] here may have been developed and performance characteristics determined by [facility] Medicine. These tests have not been specifically cleared or approved by the U.S. Food and Drug Administration. If applicable, controls were reviewed and showed appropriate reactivity." Specimen Tissue Performing Organization Address City/State/ZIP Code Phon e Number [facility] [place] [address] [address] [facility] after 04/28/2020 Insurance Payer Benefit Plan / Subscriber ID Effective Dates Phone Addre ss Type Group [employer] PPO POS [id number] 2017-Present [id number] [place] [address] Care Teams Cement Conveyor Operator Relationship Specialty Start Date End Date Malcolm Schulte, PCP - External Follow Physician Geotechnical Intern VALE Pollack [address] [place], [place] [id number] Fabiola Do MD PCP - General Head and Neck Surgery 05/22/20 [address] [place], [place] [phone] Musa Garcia MD PCP - External Follow Dermatology 06/05/[address] [place] [address] Amisha [place], [place] [id number]
[2021-04-28] MEDS ORDERED: ACETAMINOPHEN 500 MG TAB ONE (20:01)
[2021-04-28] MEDS ORDERED: LEVALBUTEROL 1.25 MG/3 ML NEB ONE (20:02)
[2021-04-28] MEDS ORDERED: NA CHLORIDE 0.9% 3,000 ML ONE (20:02)
[2021-04-28 20:14] LABS: Urine Blood Trace-intact (Negative); Urine Glucose Negative (Negative); Urine Protein Negative (Negative); Urine pH 6.5 (5.0-7.0)
[2021-04-28 20:25] LABS: Absolute Lymphocytes (CBC) 0.5 K/uL (0.7-4.9); Hematocrit 39.1 % (36.0-45.0); Lymphocytes % 4.1 % (15.3-44.8); MPV 9.9 fL (7.6-11.3); RBC Red Blood Cell Count 4.65 M/uL (3.86-4.86)
[2021-04-28 20:31] LABS: Protime INR 2.81
[2021-04-28 20:38] LABS: BUN Blood Urea Nitrogen 7 mg/dL (7-18); Bicarbonate 26 mmol/L (21-32); Glucose Level 157 mg/dL (74-106); Lipase 26 U/L (73-393); Potassium 3.6 mmol/L (3.5-5.1); Sodium Level 138 mmol/L (136-145)
[2021-04-28 20:51] LABS: Urine Bacteria <20 /HPF (<20); Urine RBC <5 /HPF (NONE SEEN)
--- NOTE | 2021-04-28 21:04 | RAD REPORT ---
EXAM DESCRIPTION: Mel Single View04/28/2021 8:44 pm CLINICAL HISTORY: Chest pain COMPARISON: 2019 FINDINGS: The lungs appear clear of acute infiltrate. The heart is normal size IMPRESSION: No acute abnormalities displayed
[2021-04-28 21:08] LABS: Blood Morphology Comment NOTED (NOT SEEN); Platelet Estimate ADEQ; Poikilocytosis 1+
[2021-04-28 21:19] LABS: ALT/SGPT 18 U/L (12-78); AST/SGOT 16 U/L (15-37); Albumin 3.5 g/dL (3.4-5.0); Alkaline Phosphatase 61 U/L (45-117); Amylase 42 U/L (25-115); Bilirubin Direct 0.2 mg/dL (0-0.2); Bilirubin Total 0.6 mg/dL (0.2-1.0); Creatine Phosphokinase 84 U/L (26-192); Magnesium 1.6 mg/dL (1.8-2.4); Protein, Total 8.8 g/dL (6.4-8.2)
[2021-04-28 21:22] LABS: NT PRO-BNP 270 pg/mL (<125)
[2021-04-28 21:24] LABS: CKMB Creatine Kinase MB < 1.0 ng/mL (1.0-3.6)
--- NOTE | 2021-04-28 23:30 | ER ---
Nurse's Notes [facility] Name: Kary Sosa Age: 60 yrs Sex: Female : 1960 Arrival Date: 04/28/2021 Time: 19:19 Bed 15 Private MD: Diagnosis: Shortness of breath;Acute bronchitis, unspecified;Respiratory failure, unspecified with hypoxia-87% on room air;Congestive heart failure Presentation: 04/28 19:35 Chief complaint: Patient states: started having an itchy sore throat yesterday, now sm5 having fevers, shortness of breath, chest pain, muscle aches. Coronavirus screen: Vaccine status: Patient reports receiving the 2nd dose of the covid vaccine. Ebola Screen: No symptoms or risks identified at this time. Initial Sepsis Screen: Does the patient meet any 2 criteria? No. Patient's initial sepsis screen is negative. Does the patient have a suspected source of infection? No. Patient's initial sepsis screen is negative. Risk Assessment: Do you want to hurt yourself or someone else? Patient reports no desire to harm self or others. Onset of symptoms was April 27, 2021. 19:35 Method Of Arrival: Wheelchair [facility] 19:35 Acuity: PARISH 3 sm5 Triage Assessment: 19:37 General: Appears in no apparent distress. Behavior is cooperative. Pain: Complains of sm5 pain in chest. Neuro: No deficits noted. Level of Consciousness is awake, alert, obeys commands, Oriented to person, place, time, situation. Cardiovascular: Reports chest pain, fatigue, shortness of breath, Capillary refill < 3 seconds Patient's skin is warm and dry. Respiratory: Reports shortness of breath cough that is Airway is patent Trachea midline Respiratory effort is even, labored, Breath sounds with wheezes Onset: The symptoms/episode began/occurred yesterday, the patient has mild shortness of breath. Historical: - Allergies: 19:36 Sulfa (Sulfonamide Antibiotics); sm5 - Home Meds: 19:36 metoprolol tartrate Oral [Active]; albuterol sulfate Inhl [Active]; sm5 23:45 amlodipine oral [Active]; olmesartan Oral [Active]; Xarelto oral [Active]; lr4 - PMHx: 19:36 Hypertension; sarcoidoisis; Atrial fibrillation; sm5 - Immunization history:: Client reports receiving the 2nd dose of the Covid vaccine. - Social history:: Smoking status: Patient denies any tobacco usage or history of. Screenin:38 Abuse screen: Denies threats or abuse. Denies injuries from another. Nutritional sm5 screening: No deficits noted. Tuberculosis screening: No symptoms or risk factors identified. Fall Risk None identified. Assessment: 19:38 Cardiovascular: Rhythm is sinus rhythm with PACs. sm5 20:15 General: Appears in no apparent distress. uncomfortable, obese, well nourished, lr4 Behavior is calm, cooperative. Pain: Complains of pain in chest Aggravated by cough. Neuro: No deficits noted. Cardiovascular: Reports chest pain, fatigue, nausea, shortness of breath, Heart tones S1 S2 Capillary refill < 3 seconds Pulses are 2+ in right radial artery, right posterior tibial artery, left radial artery and left posterior tibial artery Rhythm is atrial fibrillation. Respiratory: Airway is patent Respiratory effort is labored, use of accessory muscles in breathing Respiratory pattern is tachypnea Sputum is thick, blood streaked, yellow. GI: Abdomen is round non-distended, Reports upper abdominal pain, diarrhea, nausea, vomiting. EENT: Throat is reddened with gag reflex present. 21:44 General: Pt daughter, Laura, [phone]. lr4 23:20 Reassessment: No changes from previously documented assessment. Patient is alert, lr4 oriented x 3, equal unlabored respirations, skin warm/dry/pink. Pt states she is not feeling much better, audible crackles noted. MD solis advised to stop fluids. 04/29 03:23 General: Patients oxygen increased. tw5 Vital Signs: 04/28 19:35 BP 141 / 66; Pulse 97; Resp 23; Temp 100.4(O); Pulse Ox 95% on R/A; Weight 99.79 kg; sm5 Height 5 ft. 2 in. (157.48 cm); Pain 0/10; 21:35 BP 144 / 93; Pulse 92; Resp 24; Temp 100.8; Pulse Ox 100% on Nebulizer Mask; Pain 10/10;lr4 23:18 BP 122 / 71; Pulse 93; Resp 21; Temp 99.0(O); Pulse Ox 93% on R/A; lr4 04/29 02:00 BP 132 / 76; Pulse 87 MON; Resp 18 S; Pulse Ox 97% on R/A; sv1 03:23 Pulse Ox 89% on 2 lpm NC; tw5 04:00 BP 116 / 67 RA Supine (auto/reg); Pulse 80 MON; Resp 22; Pulse Ox 96% on 4 lpm NC; sv1 04/28 19:35 Body Mass Index 40.24 (99.79 kg, 157.48 cm) 5 ED Course: 04/28 19:19 Patient arrived in ED. ja2 19:36 Triage completed. sm5 19:38 Arm band placed on right wrist. EKG completed in triage. Results shown to MD. sm5 19:38 Patient has correct armband on for positive identification. Placed in gown. Bed in low sm5 position. Call light in reach. Side rails up X2. director business management on. Pulse ox on. NIBP on. 19:40 Hilario Solis MD is Attending Physician. kdr 19:45 Inserted saline lock: 20 gauge in left antecubital area, using aseptic technique. lr4 20:20 SARS-COV-2 RT PCR (Document "Date of Onset" if Symptomatic) Sent. lr4 20:20 Basic Metabolic Panel Sent. lr4 20:20 CBC with Automated Diff Sent. lr4 20:20 Liver (Hepatic) Function Sent. lr4 20:20 Amylase, Serum Sent. lr4 20:20 Blood Culture Adult (2) Sent. lr4 20:21 CPK Sent. lr4 20:21 Ckmb Sent. lr4 20:21 Lactate Sent. lr4 20:21 Lipase Sent. lr4 20:21 Procalcitonin Sent. lr4 20:21 Ptt, Activated Sent. lr4 20:21 Urine Microscopic Only Sent. lr4 20:21 Basic Metabolic Panel Sent. lr4 20:21 CBC with Diff Sent. lr4 20:21 LFT's Sent. lr4 20:21 Magnesium Sent. lr4 20:21 XRAY Chest (1 view) Sent. lr4 20:21 NT PRO-BNP Sent. lr4 20:22 PT-INR Sent. lr4 20:22 Troponin HS Sent. lr4 20:37 Strep Sent. lr4 20:37 Manual Differential Sent. lr4 20:43 XRAY Chest (1 view) In Process Unspecified. EDMS 23:28 Jose Angel Hernadez MD is Hospitalizing Provider. kdr 23:42 No provider procedures requiring assistance completed. lr4 04/29 00:01 Report given to Yue de la torre. lr4 00:45 Bradford Shirley RN is Primary Nurse. sv1 03:23 Oxygen administration via nasal cannula \\T\\ 3L/min. tw5 03:23 Response to oxygen therapy: oxygen was 89% with 2 L increased oxygen to 3 L. tw5 03:25 Inserted saline lock: 20 gauge in right antecubital area, using aseptic technique. tw5 Administered Medications: 04/28 20:30 Drug: NS 0.9% (30 ml/kg) 30 ml/kg Route: IV; Rate: bolus; Site: left antecubital; lr4 23:15 Follow up: IV Status: Completed infusion; IV Intake: 2000ml lr4 20:30 Drug: Xopenex (levalbuterol) (3) 1.25 mg Route: Inhalation; lr4 23:24 Follow up: Response: No adverse reaction; Wheezing unchanged lr4 20:30 Drug: Tylenol 1000 mg Route: PO; lr4 23:25 Follow up: Response: No adverse reaction; Pain is decreased lr4 04/29 00:51 Drug: Lasix (furosemide) 40 mg Route: IVP; Site: left antecubital; sv1 05:02 Follow up: Response: No adverse reaction sv1 01:39 Drug: SOLU-Medrol (methylPrednisoLONE) 125 mg Route: IVP; Site: left antecubital; sv1 01:39 Drug: Rocephin - (cefTRIAXone) 1 grams Route: IVPB; Infused Over: 30 mins; Site: left sv1 antecubital; 01:45 Drug: Xopenex (levalbuterol) 1.25 mg Route: Inhalation; sv1 05:02 Follow up: Response: No adverse reaction sv1 02:24 Drug: Zithromax (azithromycin) 500 mg Route: IVPB; Infused Over: 1 hrs; Site: left sv1 antecubital; 05:01 Follow up: Response: No adverse reaction; IV Status: Completed infusion sv1 02:56 Drug: Tylenol 1000 mg Route: PO; sv1 05:01 Follow up: Response: No adverse reaction; Pain is decreased sv1 Intake: 02/20 23:15 IV: 2000ml; Total: 2000ml. lr4 Outcome: 23:30 Decision to Hospitalize by Provider. kdr 23:42 Condition: stable lr4 04/29 21:11 Admitted to Med/surg accompanied by tech, room 212, with chart, Report called to tk1 FAINA Hanson 22:15 Patient left the ED. tk1 Signatures: Dispatcher [employer] EDMS Hilario Solis MD MD kdr Alexander, Jessica ja2 Wood, Tiffany 5 Yue Grimes RN RN sm5 Bradford Shirley RN RN jose1 Martha Blake tk1 Rosana Velazquez RN RN lr4
--- NOTE | 2021-04-28 23:30 | EDPHYS ---
Physician Documentation [facility] Name: Kary Sosa Age: 60 yrs Sex: Female : 1960 Arrival Date: 04/28/2021 Time: 19:19 Bed 15 Private MD: ED Physician Hilario Cherry HPI: 04/28 21:03 This 60 yrs old Black Female presents to ER via Wheelchair with complaints of Breathing kdr Difficulty, Chest Pain. 21:03 The patient has shortness of breath at rest, with light activity. Onset: The kdr symptoms/episode began/occurred gradually, yesterday. Duration: The symptoms are continuous, and are steadily getting worse. The patient's shortness of breath is aggravated by exertion, light activity. Associated signs and symptoms: Pertinent positives: productive cough, fever, Sore throat and upper respiratory symptoms, cough that is productive with scant blood. Severity of symptoms: At their worst the symptoms were mild moderate just prior to arrival, in the emergency department the symptoms are unchanged. The patient has not experienced similar symptoms in the past. The patient has not recently seen a physician. Patient was vaccinated and boosted in March. Historical: - Allergies: 19:36 Sulfa (Sulfonamide Antibiotics); sm5 - Home Meds: 19:36 metoprolol tartrate Oral [Active]; albuterol sulfate Inhl [Active]; sm5 23:45 amlodipine oral [Active]; olmesartan Oral [Active]; Xarelto oral [Active]; lr4 - PMHx: 19:36 Hypertension; sarcoidoisis; Atrial fibrillation; sm5 - Immunization history:: Client reports receiving the 2nd dose of the Covid vaccine. - Social history:: Smoking status: Patient denies any tobacco usage or history of. ROS: 21:03 Constitutional: Negative for fever, chills, and weight loss, Eyes: Negative for injury, kdr pain, redness, and discharge, Neck: Negative for injury, pain, and swelling, Cardiovascular: Negative for chest pain, palpitations, and edema, Abdomen/GI: Negative for abdominal pain, nausea, vomiting, diarrhea, and constipation, Back: Negative for injury and pain, : Negative for injury, bleeding, discharge, and swelling, MS/Extremity: Negative for injury and deformity, Skin: Negative for injury, rash, and discoloration, Neuro: Negative for headache, weakness, numbness, tingling, and seizure activity. Psych: Negative for depression, anxiety, suicide ideation, homicidal ideation, and hallucinations, Allergy/Immunology: Negative for hives, rash, and allergies, Endocrine: Negative for neck swelling, polydipsia, polyuria, polyphagia, and marked weight changes, Hematologic/Lymphatic: Negative for swollen nodes, abnormal bleeding, and unusual bruising. 21:03 Respiratory: Positive for cough, Occasional bright red blood, dyspnea on exertion, hemoptysis, shortness of breath, wheezing. Exam: 21:03 Constitutional: This is a well developed, well nourished patient who is awake, alert, kdr and in no acute distress. Head/Face: Normocephalic, atraumatic. Eyes: Pupils equal round and reactive to light, extra-ocular motions intact. Lids and lashes normal. Conjunctiva and sclera are non-icteric and not injected. Cornea within normal limits. Periorbital areas with no swelling, redness, or edema. Neck: Trachea midline, no thyromegaly or masses palpated, and no cervical lymphadenopathy. Supple, full range of motion without nuchal rigidity, or vertebral point tenderness. No Meningismus. Chest/axilla: Normal chest wall appearance and motion. Nontender with no deformity. No lesions are appreciated. Cardiovascular: Regular rate and rhythm with a normal S1 and S2. No gallops, murmurs, or rubs. Normal PMI, no JVD. No pulse deficits. Abdomen/GI: Soft, non-tender, with normal bowel sounds. No distension or tympany. No guarding or rebound. No evidence of tenderness throughout. Back: No spinal tenderness. No costovertebral tenderness. Full range of motion. Skin: Warm, dry with normal turgor. Normal color with no rashes, no lesions, and no evidence of cellulitis. MS/ Extremity: Pulses equal, no cyanosis. Neurovascular intact. Full, normal range of motion. Neuro: Awake and alert, GCS 15, oriented to person, place, time, and situation. Cranial nerves II-XII grossly intact. Motor strength 5/5 in all extremities. Sensory grossly intact. Cerebellar exam normal. Normal gait. Psych: Awake, alert, with orientation to person, place and time. Behavior, mood, and affect are within normal limits. 23:38 ECG was reviewed by the Attending Physician. kdr Vital Signs: 19:35 BP 141 / 66; Pulse 97; Resp 23; Temp 100.4(O); Pulse Ox 95% on R/A; Weight 99.79 kg; sm5 Height 5 ft. 2 in. (157.48 cm); Pain 0/10; 21:35 BP 144 / 93; Pulse 92; Resp 24; Temp 100.8; Pulse Ox 100% on Nebulizer Mask; Pain 10/10;lr4 23:18 BP 122 / 71; Pulse 93; Resp 21; Temp 99.0(O); Pulse Ox 93% on R/A; lr4 02 02:00 BP 132 / 76; Pulse 87 MON; Resp 18 S; Pulse Ox 97% on R/A; sv1 03:23 Pulse Ox 89% on 2 lpm NC; tw5 04:00 BP 116 / 67 RA Supine (auto/reg); Pulse 80 MON; Resp 22; Pulse Ox 96% on 4 lpm NC; sv1 04/28 19:35 Body Mass Index 40.24 (99.79 kg, 157.48 cm) [facility] MDM: 04/28 21:03 Data reviewed: vital signs, nurses notes, lab test result(s), radiologic studies. kdr Counseling: I had a detailed discussion with the patient and/or guardian regarding: the historical points, exam findings, and any diagnostic results supporting the discharge/admit diagnosis, lab results, radiology results. 23:30 Patient medically screened. kdr 04/28 19:41 Order name: Basic Metabolic Panel kdr 04/28 19:41 Order name: CBC with Diff kdr 04/28 19:41 Order name: LFT's kdr 04/28 19:41 Order name: Magnesium kdr 04/28 19:41 Order name: NT PRO-BNP; Complete Time: 21:29 kdr 04/28 19:41 Order name: PT-INR; Complete Time: 20:41 kdr 04/28 19:41 Order name: Troponin HS; Complete Time: 21:29 kdr 04/28 19:42 Order name: Amylase, Serum; Complete Time: 21:29 kdr 04/28 19:42 Order name: Blood Culture Adult (2) kdr 04/28 19:42 Order name: CPK; Complete Time: 21:29 kdr 04/28 19:42 Order name: Ckmb; Complete Time: 21:29 kdr 04/28 19:42 Order name: Lactate; Complete Time: 20:50 kdr 04/28 19:42 Order name: Lipase; Complete Time: 21:29 kdr 04/28 19:42 Order name: Procalcitonin; Complete Time: 21:29 kdr 04/28 19:42 Order name: Ptt, Activated; Complete Time: 20:41 kdr 04/28 19:42 Order name: Urine Microscopic Only; Complete Time: 20:56 kdr 04/28 19:42 Order name: Basic Metabolic Panel; Complete Time: 21:29 EDMS 04/28 19:42 Order name: CBC with Automated Diff; Complete Time: 21:29 EDMS 04/28 19:42 Order name: Liver (Hepatic) Function; Complete Time: 21:29 EDCO 04/28 19:42 Order name: Magnesium; Complete Time: 21:29 EDCO 04/28 19:50 Order name: SARS-COV-2 RT PCR (Document "Date of Onset" if Symptomatic); Complete Time: kdr 23:04/28 20:14 Order name: Urine Dipstick-Ancillary; Complete Time: 20:41 EDCO 04/28 20:26 Order name: Strep; Complete Time: 20:50 ds4 04/28 20:27 Order name: Manual Differential; Complete Time: 21:29 EDCO 04/28 20:58 Order name: Throat Culture EDCO 04/28 23:28 Order name: Lactate Sepsis 2 HR Follow-up; Complete Time: 23:30 EDMS 04/29 09:34 Order name: CBC with Automated Diff EDCO 04/29 11:38 Order name: Comprehensive Metabolic Panel EDCO 04/29 11:39 Order name: Lipid Profile EDCO 04/28 19:41 Order name: XRAY Chest (1 view); Complete Time: 21:29 kdr 04/28 19:41 Order name: EKG; Complete Time: 19:42 kdr 04/28 19:41 Order name: Cardiac monitoring; Complete Time: 20:21 kdr 04/28 19:41 Order name: EKG - Nurse/Tech; Complete Time: 20:21 kdr 04/28 19:41 Order name: IV Saline Lock; Complete Time: 20:21 kdr 04/28 19:41 Order name: Labs collected and sent; Complete Time: 20:21 kdr 04/28 19:41 Order name: O2 Per Protocol; Complete Time: 20:21 kdr 04/28 19:41 Order name: O2 Sat Monitoring; Complete Time: 20:21 kdr 04/28 19:42 Order name: Accucheck; Complete Time: 23:26 kdr 04/28 19:42 Order name: IV Saline Lock - Large Bore; Complete Time: 20:20 kdr 04/28 19:42 Order name: Urine Dipstick-Ancillary (obtain specimen); Complete Time: 20:20 kdr 04/28 23:29 Order name: CT Chest For PE Angio la1 04/29 09:45 Order name: Labs - recollect needed: recollect blue top bd 04/29 11:39 Order name: T4 Free EDMS 04/29 11:39 Order name: Magnesium EDMS 04/29 11:39 Order name: Thyroid Stimulating Hormone EDMS 04/29 14:30 Order name: CT EDMS EC:38 Rate is 95 beats/min. Rhythm is regular, Sinus Rhythm with No ectopy. QRS [place] is kdr Normal. [place] interval is normal. QRS interval is normal. QT interval is normal. Clinical impression: NSR w/ Non-specific ST/T Changes. Administered Medications: 20:30 Drug: NS 0.9% (30 ml/kg) 30 ml/kg Route: IV; Rate: bolus; Site: left antecubital; lr4 23:15 Follow up: IV Status: Completed infusion; IV Intake: 2000ml lr4 20:30 Drug: Xopenex (levalbuterol) (3) 1.25 mg Route: Inhalation; lr4 23:24 Follow up: Response: No adverse reaction; Wheezing unchanged lr4 20:30 Drug: Tylenol 1000 mg Route: PO; lr4 23:25 Follow up: Response: No adverse reaction; Pain is decreased lr4 04/29 00:51 Drug: Lasix (furosemide) 40 mg Route: IVP; Site: left antecubital; sv1 05:02 Follow up: Response: No adverse reaction sv1 01:39 Drug: SOLU-Medrol (methylPrednisoLONE) 125 mg Route: IVP; Site: left antecubital; sv1 01:39 Drug: Rocephin - (cefTRIAXone) 1 grams Route: IVPB; Infused Over: 30 mins; Site: left sv1 antecubital; 01:45 Drug: Xopenex (levalbuterol) 1.25 mg Route: Inhalation; sv1 05:02 Follow up: Response: No adverse reaction sv1 02:24 Drug: Zithromax (azithromycin) 500 mg Route: IVPB; Infused Over: 1 hrs; Site: left sv1 antecubital; 05:01 Follow up: Response: No adverse reaction; IV Status: Completed infusion sv1 02:56 Drug: Tylenol 1000 mg Route: PO; sv1 05:01 Follow up: Response: No adverse reaction; Pain is decreased sv1 Disposition Summary: 04/28/21 23:30 Hospitalization Ordered Hospitalization Status: Inpatient Admission kdr Provider: Jose Angel Hernadez Condition: Fair kdr Problem: new kdr Symptoms: have improved kdr Bed/Room Type: Standard kdr Location: Telemetry/MedSurg (Inpatient)(04/29/21 15:50) [facility] Room Assignment: [facility](04/29/21 15:50) [facility] Diagnosis - Shortness of breath kdr - Acute bronchitis, unspecified kdr - Respiratory failure, unspecified with hypoxia - 87% on room air kdr - Congestive heart failure kdr Forms: - Medication Reconciliation Form kdr - SBAR form kdr Signatures: Dispatcher [employer] EDMS Gabbie Modi Kevin, MD MD kdr Roshni, Bravo, ORTHOPAEDIC TECHNOLOGIST-C ORTHOPAEDIC TECHNOLOGIST-Cla1 Pallavi Pizano, RN RN Priyank Mullins RN RN ja1 Yue Grimes RN RN sm5 Bradford Shirley RN RN sv1 Rosana Velazquez RN RN lr4 Corrections: (The following items were deleted from the chart) 04/28 19:52 19:52 SARS-COV-2 RT PCR+[id number].BRZ ordered. EDMS EDMS 23:41 23:30 Telemetry/MedSurg (Inpatient) kdr cg 23:41 23:30 kdr 04/29 15:50 02 23:41 BR ER HOLD cg ja1 04/29 15:50 04/28 23:41 ERHOLD- cg [facility]
[2021-04-28] MEDS ORDERED: FUROSEMIDE 40 MG/4 ML VIAL ONE (23:32)
--- NOTE | 2021-04-28 23:52 | P.HP ---
Certification for Inpatient Patient admitted to: Inpatient With expected LOS: >2 Midnights Patient will require the following post-hospital care: None Practitioner: I am a practitioner with admitting privileges, knowledge of patient current condition, hospital course, and medical plan of care. Services: Services provided to patient in accordance with Admission requirements found in Title 42 Section 412.3 of the Code of Federal Regulations Patient History Date of Service: 04/28/21 Reason for admission: Dyspnea, hypoxia History of Present Illness: 60-year-old female with history of atrial fibrillation on chronic anticoagulation therapy, hypertension and sarcoidosis presents emergency department for shortness of breath, fever and mild hemoptysis. Patient was evaluated in the emergency department her labs were significant for white blood cell count 11 hemoglobin 12.9 hematocrit 39.1 lactic acid 2.2 down to 1.8 after fluid bolus urine negative. UTI Covid test negative chest x-ray unremarkable CT scan of the chest pending. Patient with expiratory wheezing, rhonchi noted on exam. Patient desatted down to 87% on room air while in the emergency department ED provider wishes to admit for further evaluation and management of dyspnea, mild hemoptysis. - Past Medical/Surgical History -: A. fib on chronic anticoagulation -: Hypertension -: Sarcoidosis -: None Psychosocial/ Personal History: Patient lives at home with her daughter, family - Family History Mother -: Diabetes Father -: Heart disease - Social History Smoking Status: Never smoker Alcohol use: No CD- Drugs: No Caffeine use: Yes Place of Residence: Home Review of Systems 10-point ROS is otherwise unremarkable Respiratory: Cough, Shortness of Breath, Hemoptysis, SOB with Excertion, Sputum, Wheezing, As per HPI Physical Examination - Physical Exam General: Alert, In no apparent distress, Oriented x3 HEENT: Atraumatic, PERRLA, Mucous membr. moist/pink, EOMI, Sclerae nonicteric Neck: Supple, 2+ carotid pulse no bruit, No LAD, Without JVD or thyroid abnormality Respiratory: Diminished, Expiratory wheezes, Rhonchi/gurgles Cardiovascular: Normal S1 S2, Irregular heart rate/rhythm (A. fib) Gastrointestinal: Normal bowel sounds, No tenderness Musculoskeletal: No tenderness Integumentary: No rashes Neurological: Normal gait, Normal speech, Normal strength at 5/5 x4 extr, Normal tone, Normal affect Lymphatics: No axilla or inguinal lymphadenopathy - Studies Laboratory Data (last 24 hrs) 04/28/21 19:45: PT 32.7 H, INR 2.81, APTT 34.6 04/28/21 19:45: WBC 11.00 H, Hgb 12.9, Hct 39.1, Plt Count 178 04/28/21 19:45: Sodium 138, Potassium 3.6, BUN 7, Creatinine 0.87, Glucose 157 H, Magnesium 1.6 L, Total Bilirubin 0.6, AST 16, ALT 18, Alkaline Phosphatase 61, Amylase 42, Lipase 26 L Microbiology Data (last 24 hrs): 04/28/21 19:45 Throat Group A Streptococcus Rapid Screen - Final Assessment and Plan - Plan Assessment: Acute hypoxic respiratory failure Fever Hemoptysis Atrial fibrillation on chronic anticoagulation therapy Hypertension Sarcoidosis Plan: Acute hypoxic respiratory failure: Patient with mild expiratory wheezing, blood- tinged sputum rhonchi noted chest x-ray markable CT chest pending. Patient febrile to 101, continue with IV steroids, as needed nebulizer treatments. Pulmonology consulted will obtain echocardiogram as well to rule out failure/volume overload. Fever: Continue as above monitor CBC daily Hemoptysis: Patient with significant mount of thick sputum with small amount of blood streaking throughout, monitor CBC daily. Obtain CT PE to rule out other causes. Atrial fibrillation on chronic anticoagulation therapy: Continue Eliquis, monitor on telemetry. Discontinue Eliquis if having significant hemoptysis. Hypertension: Obtain and continue medications Sarcoidosis: Followed by pulmonology on outpatient basis, will obtain CT to rule out significant involvement. DVT PPX: Continue Eliquis Code status: Full Discharge Plan: Home Plan to discharge in: 48 Hours - Advance Directives Does patient have a Living Will: No Does patient have a Durable POA for Healthcare: No - Code Status/Comfort Care Code Status Assessed: Yes (Full) Critical Care: No Time Spent Managing Pts Care (In Minutes): 55
[2021-04-29] MEDS ORDERED: METHYLPREDNISOLONE 125 MG INJ ONE (01:09)
[2021-04-29] MEDS ORDERED: CEFTRIAXONE 1000 MG/VIAL ONE ×2 (01:09→09:05)
[2021-04-29] MEDS ORDERED: LEVALBUTEROL 1.25 MG/3 ML NEB ONE (01:10)
[2021-04-29] MEDS ORDERED: NA CHLORIDE 0.9% 0 ML IV ONE (01:10)
[2021-04-29] MEDS ORDERED: NA CHLORIDE 0.9% 0 ML ONE ×2 (01:11→09:06)
[2021-04-29] MEDS ORDERED: AZITHROMYCIN 200 MG/5ML ORAL SUSP ONE (01:14)
[2021-04-29] MEDS ORDERED: AZITHROMYCIN 500 MG INJ IVPB ONE ×2 (01:15→09:05)
[2021-04-29] MEDS ORDERED: NA CHLORIDE 0.9% 250 ML ONE (01:17)
[2021-04-29] MEDS ORDERED: ACETAMINOPHEN 500 MG TAB ONE ×2 (02:56→09:09)
[2021-04-29] MEDS ORDERED: ALBUTEROL 2.5 MG/3 ML NEB SOL NEB PRN (08:39)
[2021-04-29] MEDS ORDERED: IPRATROPIUM BROM 0.5MG/2.5ML NEB PRN (08:39)
[2021-04-29] MEDS ORDERED: ONDANSETRON 4 MG/2 ML VIAL IV PRN (08:39)
[2021-04-29] MEDS ORDERED: METHYLPREDNISOLONE 40 MG INJ IV SCH (09:00)
[2021-04-29] MEDS: APIXABAN 5 MG TABLET PO SCH ×2 (09:00→22:18)
[2021-04-29] MEDS ORDERED: FUROSEMIDE 40 MG/4 ML VIAL IV SCH (09:00)
[2021-04-29] MEDS ORDERED: FUROSEMIDE 40 MG/4 ML VIAL ONE (09:05)
[2021-04-29] MEDS ORDERED: APIXABAN 5 MG TABLET ONE (09:05)
[2021-04-29] MEDS ORDERED: METHYLPREDNISOLONE 40 MG INJ ONE (09:05)
[2021-04-29] MEDS ORDERED: NA CHLORIDE 0.9% 50 ML ONE (09:06)
[2021-04-29] MEDS: ACETAMINOPHEN 500 MG TAB PO PRN ×2 (09:19→22:18)
[2021-04-29 09:31] LABS: Absolute Lymphocytes (CBC) 0.8 K/uL (0.7-4.9); Hematocrit 35.7 % (36.0-45.0); Lymphocytes % 6.3 % (15.3-44.8); RBC Red Blood Cell Count 4.23 M/uL (3.86-4.86)
[2021-04-29 11:38] LABS: Albumin 3.3 g/dL (3.4-5.0); Bilirubin Total 0.6 mg/dL (0.2-1.0); Magnesium 1.7 mg/dL (1.8-2.4); Potassium 3.2 mmol/L (3.5-5.1); Thyroid Stimulating Hormone 0.437 uIU/mL (0.360-3.740)
[2021-04-29] MEDS ORDERED: POTASSIUM CL SA 10 MEQ TAB PO ONE ×2 (12:36→14:40)
--- NOTE | 2021-04-29 13:14 | P.CNS ---
Date of Consult: 04/29/21 Reason for Consult: Hemoptysis Chief Complaint: Dyspnea, hypoxia History of Present Illness: Age 60 HXof sarcoidosis AW acute onset on R sided chest pain and hemoptysis with cough, LLL infiltrate Doign well, LE edema Allergies Sulfa (Sulfonamide Antibiotics) Allergy (Verified 04/29/21 11:22) Hives/Rash Home Medications: Albuterol Inhaler [Ventolin Inhaler*] 2 puff IH Q6H PRN 04/29/21 Amlodipine [Norvasc] 10 mg PO DAILY 04/29/21 Dexlansoprazole [Dexilant] 60 mg PO DAILY 04/29/21 Metoprolol Tartrate [Lopressor] 50 mg PO DAILY 04/29/21 Rivaroxaban [Xarelto] 40 mg PO DAILY 04/29/21 - Past Medical/Surgical History Diabetic: No -: A. fib on chronic anticoagulation -: Hypertension -: Sarcoidosis -: None Psychosocial/ Personal History: Patient lives at home with her daughter, family - Family History Mother Medical History: Diabetes Father Medical History: Heart disease - Social History Alcohol use: No CD- Drugs: No Caffeine use: Yes Place of Residence: Home Review of Systems 10-point ROS is otherwise unremarkable Respiratory: As per HPI Physical Examination Temp Pulse Resp BP Pulse Ox 97.0 F 77 18 136/74 96 04/29/21 12:45 04/29/21 12:45 04/29/21 12:45 04/29/21 12:45 04/29/21 12:45 General: Alert, In no apparent distress, Oriented x3 HEENT: Atraumatic Neck: Supple Respiratory: Clear to auscultation bilaterally Cardiovascular: No edema, Regular rate/rhythm, Normal S1 S2 Laboratory Data (last 24 hrs) 04/28/21 19:45: PT 32.7 H, INR 2.81, APTT 34.6 04/28/21 19:45: WBC 11.00 H, Hgb 12.9, Hct 39.1, Plt Count 178 04/28/21 19:45: Sodium 138, Potassium 3.6, BUN 7, Creatinine 0.87, Glucose 157 H, Magnesium 1.6 L, Total Bilirubin 0.6, AST 16, ALT 18, Alkaline Phosphatase 61, Amylase 42, Lipase 26 L - Problems (1) Pneumonia Current Visit: Yes Status: Acute Plan: Age 60 acute resp symtoms and hemoptysis HXo fSarcod. Ct scan LLL infiltrate bialteral GG changes/ INR therapeutic, Mild inc in EBC, change oPO levaquin and pred DC Lasix possible discharge home am on pred and levaquin/ VS stable Qualifiers: Pneumonia type: due to unspecified organism Laterality: left
--- NOTE | 2021-04-29 14:29 | RAD REPORT ---
EXAM DESCRIPTION: CT - Chest For Pe Angio - 04/29/2021 4:42 am CLINICAL HISTORY: 60 years, Female, DYSPNEA COMPARISON: None TECHNIQUE: Multiple transaxial tomograms of the chest were obtained from the lung apices through the lung bases utilizing 2 mm slice thickness at 2 mm interval reconstruction after the administration o f large bolus of IV contrast for complete opacification of the pulmonary arteries. Subsequent 3-D maximum intensity projection images were generated in the coronal and sagittal plane f or review. This exam was performed according to our departmental dose-optimization protocol, which includes auto mated exposure control, adjustment of the mA and/or kV according to patient size and/or use of iterat coco reconstruction technique. FINDINGS: Several the images are comprised by breathing motion artifact specially at the lung bases The lungs parenchyma demonstrate the presence of minimal haziness within the anterior segment of the right upper lobe, focal area of bandlike opacity within the inferior linear segment suggesting most l ikely atelectatic changes, less likely infiltrate. No significant masses/or nodules are identified. The trachea mainstem bronchus demonstrate to be normal. There is no significant pericardial or pleura l effusions. The thoracic aorta demonstrate demonstrate to be within normal limits. Minimal intimal aortic arch ca lcification. No evidence for aneurysm/or dissection. The heart is normal in size. No evidence for rig ht ventricular strain. Minimal coronary artery calcification. There is minimal increased density within the mediastinum with the perhaps lymphadenopathy precarinal aspect measuring 11 mm on image 42, prevascular space measuring 12 mm on image 37, AP window measuri ng 11 mm on image 40, subcarinal lymph node measuring 1.3 cm on image 52. There is mild prominence of the bilateral loraine. The axillary regions demonstrate to be clear. Pulmonary arteries demonstrate to be normal, no intraluminal defect are seen that would suggest pulmo nary embolus. The bone windows demonstrate no significant skeletal lesions. The visualized portions of the upper abdomen demonstrate to be unremarkable. IMPRESSION: No evidence for pulmonary embolus and/or aortic dissection. Minimal haziness within the anterior segment of the right upper lobe, focal area of bandlike opacity within the inferior linear segment suggesting most likely atelectatic changes, less likely infiltrate . Mediastinal and bilateral hilar lymphadenopathy. Differential diagnosis includes reactive reactive in nature, possibility of sarcoidosis, versus less likely possibility of metastatic disease/lymphoma co uld be of consideration. Electronically signed by: Buzz Gonzalez MD 04/29/2021 12:31 AM SEWING MACHINE TESTER Due to temporary technical issues with the PACS/Fluency reporting system, reports are being signed by the in house radiologists without review as a courtesy to insure prompt reporting. The interpreting radiologist is fully responsible for the content of the report.
[2021-04-29] MEDS ORDERED: METOPROLOL TAR 50 MG TAB PO ONE (18:56)
[2021-04-29] MEDS ORDERED: METOPROLOL TAR 50 MG TAB ONE (19:13)
[2021-04-29] MEDS ORDERED: AZITHROMYCIN IV 500 MG in NA CHLORIDE 0.9% 250 ML IVPB SCH (21:00)
[2021-04-29] MEDS ORDERED: CEFTRIAXONE 1,000 MG in NA CHLORIDE 0.9% 50 ML IVPB SCH (21:00)
[2021-04-29] MEDS: predniSONE 20 MG TAB PO SCH (22:18)
[2021-04-29] MEDS: BENZONATATE 100 MG CAP PO PRN (22:19)
[2021-04-29 23:00] VITALS: BMI 39.3
--- NOTE | 2021-04-29 23:47 | P.PN ---
Subjective Date of Service: 04/29/21 Subjective: No new changes, No C/O voiced, Improving Review of Systems 10-point ROS is otherwise unremarkable Physical Examination - Vital Signs Temperature: 99.1 F Blood Pressure: 140/76 Pulse: 135 Respirations: 18 Pulse Ox (%): 98 - Physical Exam General: Alert, In no apparent distress, Oriented x3 HEENT: Atraumatic, PERRLA, EOMI Neck: Supple, JVD not distended Respiratory: Clear to auscultation bilaterally, Normal air movement Cardiovascular: Regular rate/rhythm, Normal S1 S2 Gastrointestinal: Normal bowel sounds, No tenderness Musculoskeletal: No tenderness Integumentary: No rashes Neurological: Normal speech, Normal tone, Normal affect Lymphatics: No axilla or inguinal lymphadenopathy - Studies Microbiology Data (last 24 hrs): 04/28/21 19:45 Throat Group A Streptococcus Rapid Screen - Final Medications List Reviewed: Yes Assessment & Plan - Problems (Diagnosis) (1) Sarcoidosis Current Visit: Yes Status: Acute (2) Atrial fibrillation Current Visit: Yes Status: Acute (3) HTN (hypertension) Current Visit: Yes Status: Acute - Plan PLAN: 1. CONTINUE WITH STEROIDS 2. CONTINUE WITH INHALER THERAPY 3. ANTIBIOTIC THERAPY 4. CARDIAC MEDS 5. GI AND DVT PROPHYLAXIS - Advance Directives Does patient have a Living Will: No Does patient have a Durable POA for Healthcare: No
[2021-04-30 06:14] LABS: Absolute Lymphocytes (CBC) 1.3 K/uL (0.7-4.9); Hematocrit 36.5 % (36.0-45.0); MPV 9.5 fL (7.6-11.3); RBC Red Blood Cell Count 4.33 M/uL (3.86-4.86)
[2021-04-30 06:26] LABS: Albumin 2.8 g/dL (3.4-5.0); Potassium 3.7 mmol/L (3.5-5.1)
[2021-04-30 06:31] LABS: Bilirubin Total 0.4 mg/dL (0.2-1.0); Protein, Total 8.2 g/dL (6.4-8.2)
[2021-04-30 08:10] LABS: Platelet Estimate ADEQ; White Blood Cell Scan OK (OK)
[2021-04-30 08:11] LABS: Blood Morphology Comment NOT SEEN (NOT SEEN)
--- NOTE | 2021-04-30 08:44 | P.PN ---
Subjective Date of Service: 04/30/21 Chief Complaint: Pneumonia Subjective: Improving (Patient is improving still complaining of some cough no further hemoptysis) Review of Systems 10-point ROS is otherwise unremarkable Physical Examination - Vital Signs Temperature: 97.1 F Blood Pressure: 124/83 Pulse: 104 Respirations: 17 Pulse Ox (%): 97 - Physical Exam General: Alert, In no apparent distress, Oriented x3 Respiratory: Expiratory wheezes Cardiovascular: No edema, Regular rate/rhythm - Studies Medications List Reviewed: Yes Assessment And Plan - Current Problems (Diagnosis) (1) Pneumonia Current Visit: Yes Status: Acute Plan: Patient is doing better no further hemoptysis plan for discharge cultures negative vital signs all stable discharge home on prednisone and levofloxacin follow-up with me in 2 weeks he has an inhaler at home patient does have a history of sarcoidosis Qualifiers: Pneumonia type: due to unspecified organism Laterality: left
[2021-04-30] MEDS ORDERED: POTASSIUM 25 MEQ EFFERV TAB PO ONE (09:00)
[2021-04-30] MEDS: APIXABAN 5 MG TABLET PO SCH ×2 (09:49→20:05)
[2021-04-30] MEDS: levoFLOXacin 750 MG TAB PO SCH (09:49)
[2021-04-30] MEDS: predniSONE 20 MG TAB PO SCH ×2 (09:49→20:05)
[2021-04-30] MEDS: BENZONATATE 100 MG CAP PO PRN (09:49)
[2021-04-30] MEDS ORDERED: BENZONATATE 100 MG CAP PO PRN (10:22)
[2021-04-30] MEDS ORDERED: HYDROCODONE/CHLORPHEN 5 ML/OSYR PO PRN (10:23)
[2021-04-30] MEDS: METOPROLOL TARTRATE 5 MG/5 ML INJ IV SCH ×2 (12:19→12:30)
[2021-04-30] MEDS ORDERED: ALBUTEROL 2.5 MG/3 ML NEB SOL NEB PRN (13:00)
[2021-04-30] MEDS ORDERED: IPRATROPIUM BROM 0.5MG/2.5ML NEB PRN (13:00)
[2021-04-30] MEDS ORDERED: METOPROLOL XL 25 MG TAB PO ONE (13:00)
[2021-04-30] MEDS: ACETAMINOPHEN 500 MG TAB PO PRN (20:05)
[2021-05-01] MEDS ORDERED: METOPROLOL XL 25 MG TAB PO SCH (06:00)
[2021-05-01 06:13] LABS: Absolute Lymphocytes (CBC) 1.3 K/uL (0.7-4.9); Hematocrit 37.5 % (36.0-45.0); Lymphocytes % 8.1 % (15.3-44.8); MPV 9.6 fL (7.6-11.3)
[2021-05-01 06:42] LABS: ALT/SGPT 16 U/L (12-78); AST/SGOT 10 U/L (15-37); Albumin 2.9 g/dL (3.4-5.0); Alkaline Phosphatase 49 U/L (45-117); BUN Blood Urea Nitrogen 14 mg/dL (7-18); Bicarbonate 26 mmol/L (21-32); Bilirubin Total 0.5 mg/dL (0.2-1.0); Glucose Level 131 mg/dL (74-106); Magnesium 2.1 mg/dL (1.8-2.4); Sodium Level 138 mmol/L (136-145)
--- NOTE | 2021-05-01 07:49 | ECHO ---
HEIGHT: 5 ft 3 in WEIGHT: 222 lb 0 oz DATE OF STUDY: 04/30/[address]: Bravo Barakat NP 2-DIMENSIONAL: YES M.MODE: YES DOPPLER: YES COLOR FLOW: YES TDS: NO PORTABLE: NO DEFINITY: NO BUBBLE STUDY: NO DIAGNOSIS: DYSPNEA CARDIAC HISTORY: CATHERIZATION: NO SURGERY: NO PROSTHETIC VALVE: NO PACEMAKER: NO MEASUREMENTS (cm) DIASTOLIC (NORMALS) SYSTOLIC (NORMALS) IVSd 1.2 (0.6-1.2) LA Diam 2.8 (1.9-4.0) LVEF 64% LVIDd 2.7 (3.5-5.7) LVIDs 1.8 (2.0-3.5) %FS 33% LVPWd 1.3 (0.6-1.2) Ao Diam 2.9 (2.0-3.7) 2 DIMENSIONAL ASSESSMENT: RIGHT ATRIUM: NORMAL LEFT ATRIUM: NORMAL RIGHT VENTRICLE: NORMAL LEFT VENTRICLE: LEFT VENTRICULAR HYPERTROPHY TRICUSPID VALVE: NORMAL MITRAL VALVE: NORMAL PULMONIC VALVE: NORMAL AORTIC VALVE: NORMAL PERICARDIAL EFFUSION: NONE AORTIC ROOT: NORMAL LEFT VENTRICULAR WALL MOTION: NORMAL EJECTION FRACTION. DOPPLER/COLOR FLOW: NORMAL. COMMENTS: DECREASED LEFT VENTRICULAR COMPLIANCE. NORMAL EJECTION FRACTION - 64%. MILD LEFT VENTRICULAR HYPERTROPHY. TECHNOLOGIST: STANLEY PERKINS
--- NOTE | 2021-05-01 09:08 | CON ---
Date of Consultation: 05/01/2021 Ms. Sosa was admitted on 04/28/2021 with shortness of breath. I saw the patient on 05/01/2021 ivy carroll of atrial fibrillation. History Of Present Illness: Ms. Sosa is a 60-year-old black woman. She is very well known to us fr om previous visits and admission. Has seen Dr. Londono in the past and she sees him in the office occ asionally. Has a history of hypertension, sarcoidosis, and chronic atrial fibrillation. At one poin t, she tried sotalol which gave her side effects, so Dr. Londono put her on metoprolol and Xarelto roldan t she has been taken for a while. She comes in with a left lower lobe infiltrate, hemoptysis, right- sided chest pain which caused her heart rate to be elevated. It is back to 67 right now. She does t edgardo metoprolol at home. She is also on Dexilant, inhalers, and Norvasc. She is on low dose Lasix ri ght now and has been having some potassium supplementation and is feeling much better. Past Medical History: As stated above. Allergies: SHE IS ALLERGIC TO SULFA. Review of Systems: Negative. Social History: Negative. Family History: Noncontributory. Medications: Listed earlier. Physical Examination: Vital Signs: Her atrial fibrillation rate was 67. Her vital signs were stable. Chest: Revealed some rales at the bases. Cardiac: Revealed atrial fibrillation. Abdomen: Benign. Extremities: Revealed no clubbing, cyanosis, or edema. Diagnostic Data: Her BNP was 270. White count was 17,000. CT showed a left lower lobe infiltrate. Potassium was 4.0. Impression And Plan: 1.Chronic atrial fibrillation, on metoprolol and Xarelto. No change in therapy. Increase metoprolo l as needed. 2.Left lower lobe infiltrate, on antibiotics. She is also on steroids. 3.Hypertension, on Norvasc. 4.Gastroesophageal reflux disease, on Dexilant. 5.Sarcoidosis, on steroids. I do not think Mrs. Sosa needs Lasix at this point. I would continue other medications otherwise. We will see her in the office in the near future after she goes home. LORENA/NOEL Voice ID: [id number] Report ID: [id number]
[2021-05-01] MEDS: predniSONE 20 MG TAB PO SCH ×2 (09:13→22:30)
[2021-05-01] MEDS: levoFLOXacin 750 MG TAB PO SCH (09:13)
[2021-05-01] MEDS: APIXABAN 5 MG TABLET PO SCH (09:13)
[2021-05-01] MEDS ORDERED: METOPROLOL XL 25 MG TAB PO ONE (10:09)
[2021-05-01] MEDS ORDERED: DIGOXIN 0.25 MG/ML AMP IV ONE (13:10)
--- NOTE | 2021-05-01 13:10 | P.PN ---
Date of Service: 04/30/21 Subjective Clinical condition improving. Pneumonia improving. Still tachycardic. Atrial fibrillation is poorly controlled. Heart rates in the 130s to 140s. Add digoxin to her regimen. Review of Systems 10-point ROS is otherwise unremarkable Physical Examination - Vital Signs Reviewed - Physical Exam General: Alert, In no apparent distress, Oriented x3 HEENT: Atraumatic, PERRLA, EOMI Neck: Supple, JVD not distended Respiratory: Clear to auscultation bilaterally, Normal air movement Cardiovascular: Irregularly, irregular rhythm Gastrointestinal: Normal bowel sounds, No tenderness Neurological: Normal speech, Normal tone, Normal affect Assessment & Plan - Problems (Diagnosis) (1) Sarcoidosis with secondary pneumonia Current Visit: Yes Status: Acute (2) Atrial fibrillation Current Visit: Yes Status: Acute (3) HTN (hypertension) Current Visit: Yes Status: Acute - Plan PLAN: 1. CONTINUE WITH STEROIDS 2. CONTINUE WITH INHALER THERAPY 3. ANTIBIOTIC THERAPY 4. CARDIAC MEDS; add beta-jes therapy and increase the dosage 5. GI AND DVT PROPHYLAXIS - Advance Directives Does patient have a Living Will: No Does patient have a Durable POA for Healthcare: No
[2021-05-01 16:12] VITALS: O2SAT 95
[2021-05-01] MEDS: METOPROLOL XL 50 MG TAB PO SCH (19:04)
[2021-05-02] MEDS ORDERED: METOPROLOL XL 25 MG TAB PO SCH (06:00)
[2021-05-02] MEDS: METOPROLOL XL 50 MG TAB PO SCH (07:45)
[2021-05-02 09:20] VITALS: BP 141/96; TEMP 97.1
[2021-05-02] MEDS ORDERED: VALACYCLOVIR 500 MG TAB PO ONE (09:30)
[2021-05-02] MEDS: levoFLOXacin 750 MG TAB PO SCH (09:41)
[2021-05-02] MEDS: predniSONE 20 MG TAB PO SCH (09:41)
== END 2021-05-02 10:23 | disposition home or self-care (01) | DRG 193 ==
LOC: ER 19:18 → ERHOLD 23:40 → 2ND 04-29 21:16
PROVIDERS: ADMIT Hospitalist; ATTEND Hospitalist
DX: J18.0 Bronchopneumonia, unspecified organism (principal); J96.01 Acute respiratory failure with hypoxia; R04.2 Hemoptysis; J20.9 Acute bronchitis, unspecified; I48.91 Unspecified atrial fibrillation; K21.9 Gastro-esophageal reflux disease without esophagitis; D86.9 Sarcoidosis, unspecified; I10 Essential (primary) hypertension; Z88.1 Allergy status to other antibiotic agents; Z79.52 Long term (current) use of systemic steroids; Z79.01 Long term (current) use of anticoagulants; Z79.899 Other long term (current) drug therapy; Z20.822 Contact with and (suspected) exposure to COVID-19
CPT/HCPCS: 36415; 71045; 71275; 80048; 80053; 80061; 80076; 81003; 81015; 82150; 82550; 82553; 83605; 83690; 83735; 83880; 84145; 84439; 84443; 84484; 85025; 85610; 85730; 87040; 87070; 87081; 87205; 93005; 93306; 96365; 96366; 96367; 96375; 99285; J0456; J1160; J1940; J2920; J2930; J7030; J7040; J7050; J7512; Q9967; U0003